=== PATIENT | female | born 1955 | race Caucasian/White ===

== ENCOUNTER 2017-05-08 07:35 | Emergency (ER) | payer BC ==
[2017-05-08] MEDS: fentaNYL 100 MCG/2 ML SDV IVPUSH ONE (08:33)
--- NOTE | 2017-05-08 09:10 | EDM.PDOC ---
ED HPI GENERAL MEDICAL PROBLEM - General Chief Complaint: Lower Extremity Injury/Pain Stated Complaint: hip pain s/p fall Time Seen by Provider: 05/08/17 08:35 Source of Information: Reports: Patient History Limitations: Reports: No Limitations - History of Present Illness INITIAL COMMENTS - FREE TEXT/NARRATIVE: Patient presents to ER with complaints of right hip pain. Was getting up for the day when tripped over a rug, hit a table and fell on her right hip. Was unable to get up from the floor and called EMS. Did not hit her head or lose consciousness. Onset: Today, Sudden Duration: Hour(s): Location: Reports: Lower Extremity, Right Quality: Reports: Sharp, Throbbing Severity: Severe Associated Symptoms: Reports: No Other Symptoms Right Hip Pain Score (Numeric/FACES): 10 - Related Data Allergies Allergy/AdvReac Type Severity Reaction Status Date / Time venom-honey bee Allergy Anaphylactic Verified 10/08/14 18:51 [bee venom (honey bee)] Shock Home Meds: Home Meds Aspirin [Halfprin] 81 mg PO DAILY 10/08/14 [History] Hydrochlorothiazide 25 mg PO DAILY 10/08/14 [History] Losartan [Cozaar] 100 mg PO DAILY 10/08/14 [History] Metoprolol Succinate [Toprol XL] 200 mg PO DAILY 10/08/14 [History] Naproxen Sodium [Aleve] 220 mg PO TID PRN 10/08/14 [History] Past Medical History HEENT History: Reports: Impaired Vision Cardiovascular History: Reports: Hypertension - Past Surgical History GI Surgical History: Reports: Appendectomy, Cholecystectomy Musculoskeletal Surgical History: Reports: Other (See Below) Other Musculoskeletal Surgeries/Procedures:: HEEL SPUR SURGERY Social & Family History - Tobacco Use Smoking Status *Q: Current Every Day Smoker Years of Tobacco use: 45 Packs/Tins Daily: 1 Used Tobacco, but Quit: No Second Hand Smoke Exposure: Yes - Caffeine Use Caffeine Use: Reports: Coffee - Recreational Drug Use Recreational Drug Use: No Review of Systems - Review of Systems Review Of Systems: See Below Constitutional: Denies: Fever, Weakness Eyes: Reports: No Symptoms Ears: Reports: No Symptoms Nose: Reports: No Symptoms Mouth/Throat: Reports: No Symptoms Respiratory: Denies: Shortness of Breath, Cough Cardiovascular: Denies: Chest Pain, Palpitations, Syncope GI/Abdominal: Denies: Abdominal Pain, Nausea Genitourinary: Reports: No Symptoms Musculoskeletal: Reports: Joint Pain Skin: Reports: No Symptoms Neurological: Reports: No Symptoms Psychiatric: Reports: No Symptoms ED EXAM, GENERAL - Physical Exam Exam: See Below Exam Limited By: No Limitations General Appearance: Alert, WD/WN, Mild Distress Ears: Normal External Exam, Normal TMs Nose: Normal Inspection, Normal Mucosa, No Blood Throat/Mouth: Normal Inspection, Normal Oropharynx Head: Normocephalic Neck: Normal Inspection, Supple, Non-Tender Respiratory/Chest: No Respiratory Distress, Lungs Clear, Normal Breath Sounds Cardiovascular: Regular Rate, Rhythm GI/Abdominal: Normal Bowel Sounds, Soft, Non-Tender Extremities: Limited Range of Motion (right hip pain, increased with movement) Neurological: Alert, Oriented Skin Exam: Warm, Dry Course - Vital Signs Last Recorded V/S: Last Vital Signs Temp 97.2 F 05/08/17 08:06 Pulse 68 05/08/17 08:06 Resp 20 05/08/17 08:06 BP 142/70 H 05/08/17 08:06 Pulse Ox 92 L 05/08/17 08:06 - Orders/Labs/Meds Orders: Active Orders 24 hr Category Date Time Status Hip Min 2V or 3V w Pelvis Rt [CR] Stat Exams 05/08/17 07:46 Taken Meds: Medications Discontinued Medications Generic Name Dose Route Start Last Admin Trade Name Bradq PRN Reason Stop Dose Admin Fentanyl 25 mcg 05/08/17 08:30 05/08/17 08:33 Sublimaze IVPUSH 05/08/17 08:31 25 mcg ONETIME ONE Administration - Re-Assessments/Exams Free Text/Narrative Re-Assessment/Exam: 05/08/17 09:18 Xrays reviewed. Right hip fracture noted. Contacted [facility]. 05/08/17 09:[address] Rivera at [facility]. Accepted patient in transfer. risks and benefits of transfer discussed with patient and . Risks of transfer include ambulance crash, uncontrolled pain and worsening status. Benefits of transfer include orthopaedic care. Risks of nontransfer include inability to care for fracture, improper healing and immobility. Benefits of nontransfer include close to home care. Patient and agree to transfer. Departure - Departure Time of Disposition: 09:34 Disposition: DC/Tfer to Acute Hospital 02 Condition: Fair Clinical Impression: Intertrochanteric fracture, hip - Discharge Information Referrals: PCP,None [Primary Care Provider] - Forms: ED Department Discharge Additional Instructions: 1. Transfer to [facility], [facility]. May give Fentanyl 25 mcg IV every hour for pain enroute - My Orders Last 24 Hours: My Active Orders 05/08/17 07:46 Hip Min 2V or 3V w Pelvis Rt [CR] Stat - Assessment/Plan Last 24 Hours: My Active Orders 05/08/17 07:46 Hip Min 2V or 3V w Pelvis Rt [CR] Stat
[2017-05-08 09:37] VITALS: BP 162/80
[2017-05-08] MEDS: fentaNYL 100 MCG/2 ML SDV IVPUSH PRN (09:42)
== END 2017-05-08 10:25 ==
LOC: CC.ED 07:35
DX: S72.141A Displaced intertrochanteric fracture of right femur, initial encounter for closed fracture (principal); Z91.030 Bee allergy status; Z79.82 Long term (current) use of aspirin; Z79.899 Other long term (current) drug therapy; I10 Essential (primary) hypertension; F17.210 Nicotine dependence, cigarettes, uncomplicated; W18.09XA Striking against other object with subsequent fall, initial encounter
CPT/HCPCS: 51702; 73502; 96374; 96376; 99285; J3010

== ENCOUNTER 2020-05-26 11:58 | Inpatient (IN) | payer MEDICARE, BC ==
--- NOTE | 2020-05-26 12:28 | EDM.PDOC ---
ED HPI GENERAL MEDICAL PROBLEM - General Chief Complaint: General Stated Complaint: n/v/d Time Seen by Provider: 05/26/20 12:10 Source of Information: Reports: Patient, EMS History Limitations: Reports: No Limitations - History of Present Illness INITIAL COMMENTS - FREE TEXT/NARRATIVE: This patient is a 65 year old female that presents to the ER. Patient arrives via EMS. Patient is a cancer patient with ovarian cancer with history of spread to liver and bladder per patient. The patient has been getting chemo treatments every 3 weeks. She reports he last chemo treatment was . She reports that this was her th chemo treatment. Patient reports that she does not have a port for access. Patient reports that her chemo and her doctors are in [place]. Patient reports since starting chemo, the last 3 treatments she has gotten diarrhea, nausea, vomiting, and generally weak. Patient reports that this has been ongoing. She reports that she had her last chemo done on , then shortly afterwards she started having more diarrhea, nausea, vomiting, and general weakness. She reports she went to the ER in [place] the . She reports she was discharged home. She reports then yesterday she went to the hospital again. I called and spoke to RN at [place] about the patient. , C-Diff order placed for patient, but was not collected. Yesterday, UA was ordered as out patient order and not resulted yet. She will fax lab results from the ER visit on the . The patient reports that she called an ambulance today because she felt more generally weak, had nausea, vomiting, and her diarrhea has continued. Patient reports being on abx within the last 30 days for cancer. Upon review, it appears was for cellulitis. The patient also reports having surgery over a year ago on her abd for her cancer. There continues to be some small open wound at the site. The patient also reports she has continued to have a dry cough for several months. Onset Date: 05/26/20 Duration: Getting Worse, Other (Patient reports been going on for several months, just worse today. ) Severity: Moderate Improves with: Reports: None Worsens with: Reports: Other (after chemo) Associated Symptoms: Reports: Cough, Loss of Appetite, Malaise, Nausea/Vomiting, Weakness. Denies: Confusion, Chest Pain, cough w sputum, Diaphoresis, Fever/Chills, Headaches, Rash, Seizure, Shortness of Breath, Syncope - Related Data Allergies Allergy/AdvReac Type Severity Reaction Status Date / Time venom-honey bee Allergy Anaphylactic Verified 05/26/20 13:15 [bee venom (honey bee)] Shock Home Meds: Home Meds Amoxicillin/Potassium Clav [Amox-Clav 875-125 mg Tablet] 1 tab PO BID 05/26/20 [History] Aspirin [Aspirin EC] 81 mg PO DAILY 05/26/20 [History] Calcium Carbonate/Vitamin D3 [Calcium 1,000 + D3 Caplet] 1 each PO DAILY 05/26/20 [History] Cholecalciferol (Vitamin D3) [Vitamin D3] 1,000 unit PO DAILY 05/26/20 [History] Escitalopram [Lexapro] 20 mg PO DAILY 05/26/20 [History] Ferrous Sulfate [Iron] 325 mg PO Q48H 05/26/20 [History] Lenvatinib Mesylate [Lenvima] 14 mg PO DAILY 05/26/20 [History] Losartan [Cozaar] 100 mg PO DAILY 05/26/20 [History] Megestrol Acetate 400 mg PO DAILY 05/26/20 [History] Metoprolol Succinate [Toprol Xl] 100 mg PO DAILY 05/26/20 [History] Mupirocin Cream [Bactroban Crm] 15 gm TOP BID PRN 05/26/20 [History] Naproxen Sodium 220 mg PO BID PRN 05/26/20 [History] cloNIDine [Catapres] 0.1 mg PO BID 05/26/20 [History] hydroCHLOROthiazide [Hydrochlorothiazide] 25 mg PO DAILY 05/26/20 [History] traMADol [Ultram] 50 mg PO Q6H PRN 05/26/20 [History] Past Medical History HEENT History: Reports: Impaired Vision Cardiovascular History: Reports: Hypertension Oncologic (Cancer) History: Reports: Ovarian - Past Surgical History GI Surgical History: Reports: Appendectomy, Cholecystectomy Musculoskeletal Surgical History: Reports: Other (See Below) Other Musculoskeletal Surgeries/Procedures:: HEEL SPUR SURGERY Social & Family History - Family History Family Medical History: No Pertinent Family History - Caffeine Use Caffeine Use: Reports: Coffee ED ROS GENERAL - Review of Systems Review Of Systems: See Below Constitutional: Reports: Malaise, Weakness, Fatigue, Decreased Appetite HEENT: Reports: No Symptoms. Denies: Rhinitis, Sinus Problem, Throat Pain, Throat Swelling Respiratory: Reports: Cough. Denies: Shortness of Breath, Wheezing, Pleuritic Chest Pain, Sputum, Hemoptysis Cardiovascular: Reports: No Symptoms. Denies: Chest Pain, Dyspnea on Exertion, Edema, Lightheadedness, Orthopnea, Palpitations, Syncope Endocrine: Reports: Fatigue GI/Abdominal: Reports: Diarrhea (x7 today per patient), Nausea, Vomiting (x2 today). Denies: Abdominal Pain : Reports: No Symptoms Musculoskeletal: Reports: No Symptoms Skin: Reports: Wound (abd, old surgical) Neurological: Reports: No Symptoms Psychiatric: Reports: No Symptoms Hematologic/Lymphatic: Reports: No Symptoms Immunologic: Reports: No Symptoms ED EXAM, GENERAL - Physical Exam Exam: See Below Exam Limited By: No Limitations General Appearance: Alert, WD/WN, No Apparent Distress, Other (Not lethargic, but generally weak and soft spoken) Eye Exam: Bilateral Eye: Normal Inspection, PERRL Ears: Normal External Exam, Normal Canal, Hearing Grossly Normal, Normal TMs Ear Exam: Bilateral Ear: Auricle Normal, Canal Normal, TM normal Nose: Normal Inspection, Normal Mucosa, No Blood Throat/Mouth: Normal Inspection, Normal Lips, Normal Teeth, Normal Gums, Normal Oropharynx, Normal Voice, No Airway Compromise Head: Atraumatic, Normocephalic Neck: Normal Inspection, Supple, Non-Tender, Full Range of Motion Respiratory/Chest: No Respiratory Distress, Lungs Clear, Normal Breath Sounds, No Accessory Muscle Use, Chest Non-Tender Cardiovascular: Normal Peripheral Pulses, Regular Rate, Rhythm, No Edema, No Gallop, No JVD, No Murmur, No Rub Peripheral Pulses: 1+: Radial (L), Radial (R), Posterior Tibial (L), Posterior Tibial (R) GI/Abdominal: Normal Bowel Sounds, Soft, Non-Tender, No Organomegaly, No Distention, No Abnormal Bruit, No Mass, Pelvis Stable, Other (wound central abd at umbilicus. open superficial wound. no drainage. no redness, no heat. ). No: Tender (Female) Exam: Deferred Rectal (Female) Exam: Deferred Back Exam: Normal Inspection, Full Range of Motion Extremities: Normal Inspection, Normal Range of Motion, Non-Tender, No Pedal Edema, Normal Capillary Refill Neurological: Alert, Oriented, Normal Cognition, No Motor/Sensory Deficits Psychiatric: Normal Affect, Normal Mood Skin Exam: Warm, Dry, Normal Color, No Rash, Wound/Incision (wound central abd at umbilicus. open superficial wound. no drainage. no redness, no heat. ), Other (Buttock Large stage 1 pressure ulcer with errythema with minimal to no blanching. Patient was incontinent of feces, cleaned by RN Suzanna. ) Lymphatic: No Adenopathy Course - Vital Signs Last Recorded V/S: Last Vital Signs Temp 97.4 F 05/26/20 12:31 Pulse 71 05/26/20 12:31 Resp 18 05/26/20 12:31 BP 115/67 05/26/20 12:31 Pulse Ox 97 05/26/20 12:31 - Orders/Labs/Meds Orders: Active Orders 24 hr Category Date Time Status Patient Status Manage Transfer [TRANSFER] Routine ADT 05/26/20 13:42 Active Chest 1V Frontal [CR] Stat Exams 05/26/20 12:24 Taken C DIFFICILE TOXIN IMMUNOASSAY [MREF] Stat Lab 05/26/20 13:00 Received CULTURE BLOOD [BC] Stat Lab 05/26/20 13:00 Results CULTURE URINE [RM] Stat Lab 05/26/20 13:00 Received CULTURE WOUND [RM] Stat Lab 05/26/20 13:00 Received Sodium Chloride 0.9% [Normal Saline] 1,000 ml Med 05/26/20 13:19 Active IV .BOLUS Blood Culture x2 Reflex Set [OM.PC] Stat Oth 05/26/20 12:24 Ordered Resuscitation Status Routine Resus Stat 05/26/20 13:43 Ordered Medication Orders Sodium Chloride (Normal Saline) 1,000 mls @ 1,000 mls/hr IV .BOLUS ONE Stop: 05/26/20 14:18 Labs: Laboratory Tests 05/26/20 05/26/20 05/26/20 Range/Units 12:42 12:42 13:00 WBC (5.0-10.0) 10^3/uL RBC (4.00-5.50) 10^6/uL Hgb (12.0-16.0) g/dL Hct (37.0-47.0) % MCV (82.0-94.0) fL MCH (27.0-32.0) pg MCHC (33.0-38.0) g/dL RDW Coeff of Mao (11.0-15.0) % Plt Count (150-400) 10^3/uL Neut % (Auto) (35-85) % Lymph % (Auto) (10-55) % [place] % (Auto) (0-16) % Eos % (Auto) (0-5) % Baso % (Auto) (0-3) % Neut # (Auto) (1.80-7.00) 10^3/uL Lymph # (Auto) (1.00-4.80) 10^3/uL [place] # (Auto) (0.00-0.80) 10^3/uL Eos # (Auto) (0.00-0.45) 10^3/uL Baso # (Auto) 10^3/uL Sodium 139 (136-145) mEq/L Potassium 4.2 (3.5-5.0) mEq/L Chloride 102 (98-106) mEq/L Carbon Dioxide 15 L D (21-32) mmol/L BUN 73 H* D (7-18) mg/dL Creatinine 3.8 H* D (0.6-1.0) mg/dL Est Cr Clr Drug Dosing 15.01 mL/min Estimated GFR (MDRD) 12 L (>=60) mL/min Glucose 103 H (75-99) mg/dL Lactic Acid (0.4-2.0) mmol/L Calcium 10.6 H (8.4-10.1) mg/dL Total Bilirubin 1.3 H (0.0-1.0) mg/dL AST 36 (15-37) U/L ALT 14 (12-78) U/L Alkaline Phosphatase 94 (46-116) U/L Creatine Kinase 46 (21-215) U/L C-Reactive Protein 0.9 H (0.2-0.8) mg/dL Total Protein 7.5 (6.4-8.2) g/dL Albumin 3.6 (3.4-5.0) g/dL Amylase 36 (25-115) U/L Lipase 67 L (73-393) U/L Urine Color Yellow (YELLOW) Urine Appearance Clear (CLEAR) Urine pH 5.0 (4.5-8.0) Ur Specific Crawford 1.025 H (1.003-1.020) Urine Protein 30 H (NEGATIVE) mg/dL Urine Glucose (UA) Negative (NEGATIVE) mg/dL Urine Ketones Trace H (NEGATIVE) mg/dL Urine Occult Blood Trace-intact H (NEGATIVE) Urine Nitrite Positive H (NEGATIVE) Urine Bilirubin Small H (NEGATIVE) Urine Urobilinogen 0.2 (0.2-1.0) EU/dL Ur Leukocyte Esterase Negative (NEGATIVE) Urine RBC 0-5 (0-5) /HPF Urine WBC Not seen (0-5) /HPF Ur Epithelial Cells Few H (NOT SEEN) /HPF Amorphous Sediment Moderate H (NOT SEEN) /HPF Urine Bacteria Few H (NOT SEEN) /HPF SARS CoV-2 RNA Rapid MONICA Negative (NEGATIVE) 05/26/20 05/26/20 Range/Units 13:00 13:00 WBC 6.3 (5.0-10.0) 10^3/uL RBC 6.29 H (4.00-5.50) 10^6/uL Hgb 17.7 H (12.0-16.0) g/dL Hct 50.4 H (37.0-47.0) % MCV 80.1 L (82.0-94.0) fL MCH 28.1 (27.0-32.0) pg MCHC 35.1 (33.0-38.0) g/dL RDW Coeff of Mao 19.6 H (11.0-15.0) % Plt Count 229 (150-400) 10^3/uL Neut % (Auto) 71.1 (35-85) % Lymph % (Auto) 14.1 (10-55) % [place] % (Auto) 12.2 (0-16) % Eos % (Auto) 2.4 (0-5) % Baso % (Auto) 0.2 (0-3) % Neut # (Auto) 4.48 (1.80-7.00) 10^3/uL Lymph # (Auto) 0.89 L (1.00-4.80) 10^3/uL [place] # (Auto) 0.77 (0.00-0.80) 10^3/uL Eos # (Auto) 0.15 (0.00-0.45) 10^3/uL Baso # (Auto) 0.01 10^3/uL Sodium (136-145) mEq/L Potassium (3.5-5.0) mEq/L Chloride (98-106) mEq/L Carbon Dioxide (21-32) mmol/L BUN (7-18) mg/dL Creatinine (0.6-1.0) mg/dL Est Cr Clr Drug Dosing mL/min Estimated GFR (MDRD) (>=60) mL/min Glucose (75-99) mg/dL Lactic Acid 1.8 (0.4-2.0) mmol/L Calcium (8.4-10.1) mg/dL Total Bilirubin (0.0-1.0) mg/dL AST (15-37) U/L ALT (12-78) U/L Alkaline Phosphatase (46-116) U/L Creatine Kinase (21-215) U/L C-Reactive Protein (0.2-0.8) mg/dL Total Protein (6.4-8.2) g/dL Albumin (3.4-5.0) g/dL Amylase (25-115) U/L Lipase (73-393) U/L Urine Color (YELLOW) Urine Appearance (CLEAR) Urine pH (4.5-8.0) Ur Specific Crawford (1.003-1.020) Urine Protein (NEGATIVE) mg/dL Urine Glucose (UA) (NEGATIVE) mg/dL Urine Ketones (NEGATIVE) mg/dL Urine Occult Blood (NEGATIVE) Urine Nitrite (NEGATIVE) Urine Bilirubin (NEGATIVE) Urine Urobilinogen (0.2-1.0) EU/dL Ur Leukocyte Esterase (NEGATIVE) Urine RBC (0-5) /HPF Urine WBC (0-5) /HPF Ur Epithelial Cells (NOT SEEN) /HPF Amorphous Sediment (NOT SEEN) /HPF Urine Bacteria (NOT SEEN) /HPF SARS CoV-2 RNA Rapid MONICA (NEGATIVE) Meds: Medications Generic Name Dose Route Start Last Admin Trade Name Freq PRN Reason Stop Dose Admin Sodium Chloride 1,000 mls @ 1,000 mls/hr 05/26/20 13:19 Normal Saline IV 05/26/20 14:18 .BOLUS ONE Discontinued Medications Generic Name Dose Route Start Last Admin Trade Name Freq PRN Reason Stop Dose Admin Ceftriaxone Sodium 1 gm 05/26/20 13:22 Ceftriaxone 1 Gm Vial IVPUSH 05/26/20 13:23 ONETIME ONE - Re-Assessments/Exams Free Text/Narrative Re-Assessment/Exam: 05/26/20 13:20 The patient CR is 3.8. I have contacted [place] to obtain ER visit and previous labs for comparison. Due to patient having a CR of 3.8, recent diarrhea and vomiting, I have ordered a NS bolus 1L. Will await [place] records. 05/26/20 13:35 I have obtained patient labs from [place] from May 23. Her BUN was 42 and her CR was 1.61 then. Negative UTI on the . Today, her BUN is 73, CR 3.8 and Nitrate positive UTI. I will admit this patient for dehydration and UTI. Also the has now arrived. He has asked about speaking with someone about assisted living or custodial placement. He reports that she can no longer take care of herself at home and that he is unable to take care of her. He reports "its just to much for me to handle." I will discuss this with social services aide when they are here tomorrow. Departure - Departure Time of Disposition: 13:40 Disposition: Admitted As Inpatient 64 Condition: Poor Clinical Impression: UTI, Urinary tract infectious disease, Renal insufficiency, General weakness Pressure ulcer Qualifiers: Pressure injury location: buttock Pressure injury stage: stage 1 Laterality: unspecified laterality Qualified Code(s): L89.301 - Pressure ulcer of unspecified buttock, stage 1 - Discharge Information *PRESCRIPTION DRUG MONITORING PROGRAM REVIEWED*: Not Applicable *COPY OF PRESCRIPTION DRUG MONITORING REPORT IN PATIENT SUSANA: Not Applicable Referrals: Jerrell Pretty MD [Primary Care Provider] - Forms: ED Department Discharge Sepsis Event Note (ED) - Focused Exam Vital Signs: Vital Signs Temp Pulse Resp BP Pulse Ox 05/26/20 12:31 97.4 F 71 18 115/67 97 - My Orders Last 24 Hours: My Active Orders 05/26/20 12:24 Chest 1V Frontal [CR] Stat Blood Culture x2 Reflex Set [OM.PC] Stat 05/26/20 13:00 C DIFFICILE TOXIN IMMUNOASSAY [MREF] Stat CULTURE BLOOD [BC] Stat CULTURE URINE [RM] Stat CULTURE WOUND [RM] Stat 05/26/20 13:19 Sodium Chloride 0.9% [Normal Saline] 1,000 ml IV .BOLUS 05/26/20 13:42 Patient Status Manage Transfer [TRANSFER] Routine 05/26/20 13:43 Resuscitation Status Routine - Assessment/Plan Admission H&P: Please use this note as an admission H&P Last 24 Hours: My Active Orders 05/26/20 12:24 Chest 1V Frontal [CR] Stat Blood Culture x2 Reflex Set [OM.PC] Stat 05/26/20 13:00 C DIFFICILE TOXIN IMMUNOASSAY [MREF] Stat CULTURE BLOOD [BC] Stat CULTURE URINE [RM] Stat CULTURE WOUND [RM] Stat 05/26/20 13:19 Sodium Chloride 0.9% [Normal Saline] 1,000 ml IV .BOLUS 05/26/20 13:42 Patient Status Manage Transfer [TRANSFER] Routine 05/26/20 13:43 Resuscitation Status Routine Plan: PLEASE SEE RN NOTE FOR PFSH
[2020-05-26] MEDS ORDERED: Sodium Chloride 0.9% 1,000 ML IV ONE (13:19)
[2020-05-26] MEDS ORDERED: cefTRIAXone 1 GM Vial IVPUSH ONE (13:22)
[2020-05-26] MEDS ORDERED: traMADol 50 MG Tab PO PRN (14:30)
[2020-05-26] MEDS ORDERED: Acetaminophen/HYDROcodone 325-5 MG Tab PO PRN (14:30)
[2020-05-26] MEDS ORDERED: Sodium Chloride 0.9% 1,000 ML IV SCH ×2 (14:30→22:00)
[2020-05-26] MEDS ORDERED: Acetaminophen 325 MG Tab PO PRN (14:30)
[2020-05-26] MEDS ORDERED: Morphine 2 MG/ML SYRINGE IVPUSH PRN (14:30)
[2020-05-26] MEDS ORDERED: Mupirocin Oint 22 GM Tube TOP PRN (14:30)
[2020-05-26] MEDS ORDERED: Non-Formulary Medication 1 Each (Ferrous Sulfate [Iron] 325 MG Tablet) PO SCH (14:30)
[2020-05-26] MEDS ORDERED: Levofloxacin/Dextrose 5%-Water 500 MG in Premix Bag 1 BAG IV SCH (14:30)
[2020-05-26] MEDS ORDERED: Naproxen 500 MG Tab PO PRN (14:30)
[2020-05-26] MEDS ORDERED: Ondansetron 4 MG/2 ML SDV IV PRN (14:30)
[2020-05-26] MEDS ORDERED: Ferrous Sulfate 324 MG Tab.EC PO SCH (14:56)
[2020-05-26] MEDS: Nicotine 21 MG/24 Hr Patch TRDERM SCH (18:07)
[2020-05-26] MEDS: Enoxaparin 30 MG/0.3 ML Syringe SUBCUT SCH (18:07)
[2020-05-26] MEDS: cloNIDine 0.1 MG Tab PO SCH (19:59)
[2020-05-27] MEDS ORDERED: MEGESTROL ACETATE 400 MG/10 ML PO SCH (08:00)
[2020-05-27] MEDS: cloNIDine 0.1 MG Tab PO SCH ×2 (08:10→19:35)
[2020-05-27] MEDS: Citalopram 10 MG Tab PO SCH (08:10)
[2020-05-27] MEDS: Ferrous Sulfate 324 MG Tab.EC PO SCH (08:11)
[2020-05-27] MEDS: Losartan 100 MG Tab PO SCH (08:11)
[2020-05-27] MEDS: Aspirin 81 MG Tab.EC PO SCH (08:11)
[2020-05-27] MEDS: Metoprolol Succinate 100 MG Tab.ER PO SCH (08:11)
[2020-05-27] MEDS: Calcium Carbonate/Vitamin D3 1250 MG-200 Unit Tab PO SCH (08:12)
[2020-05-27] MEDS: Hydrochlorothiazide 25 MG Tab PO SCH (08:12)
[2020-05-27] MEDS: Cholecalciferol (Vitamin D3) 25 MCG Tab PO SCH (08:12)
[2020-05-27] MEDS: Nicotine 21 MG/24 Hr Patch TRDERM SCH (08:13)
[2020-05-27] MEDS ORDERED: Potassium Chloride 20 MEQ in Premix Bag 1 BAG IV ONE (11:30)
[2020-05-27] MEDS: LENVATINIB MESYLATE PO SCH (11:48)
[2020-05-27] MEDS: Sodium Chloride 0.9% 1,000 ML IV SCH ×2 (12:28→19:36)
[2020-05-27] MEDS: Enoxaparin 30 MG/0.3 ML Syringe SUBCUT SCH (14:13)
[2020-05-27] MEDS ORDERED: Levofloxacin/Dextrose 5%-Water 50 ML IV SCH (15:00)
--- NOTE | 2020-05-27 22:14 | PCM.PN ---
- General Info Date of Service: 05/27/20 Admission Dx/Problem (Free Text): UTI Acute Renal Injury Subjective Update: Kiarra is a 65 yo female who presented to the ED 05/26/2020 and was admitted to the hospital. Patient has been undergoing chemotherapy every 3 weeks and was suppose to have chemotherapy last week . Due to generalized weakness with associated diarrhea, N/V and diarrhea she was unable to get her last dose. She had been seen at the [place] ED on the and underwent laboratory work. States she was discharged home. She was seen again in the hospital on the 25 of May. Admitted to worsening weakness with ongoing N/V and diarrhea. Patient has been on abx secondary to cellulitis this last month. Patient had underwent an abdominal surgery quite some time ago, secondary to her cancer, and has chronically had an open wound to her abdomen. Patient was admitted with UTI and acute renal injury. 05/27/2020 Patient had incontinence with diarrhea upon my arrival. She states she has been dealing with the diarrhea for a long time now. Admits today she is feeling a little better than yesterday. States she has no new complaints. Has been eating food. States she does have a chronic cough, secondary to smoking, which she continues to be a current smoker. Denies any need for a nicotine patch. Functional Status: Reports: Pain Controlled, Tolerating Diet, Urinating - Review of Systems General: Reports: Weakness, Fatigue, Appetite. Denies: Fever, Chills HEENT: Reports: No Symptoms Pulmonary: Reports: Cough. Denies: Shortness of Breath Cardiovascular: Reports: No Symptoms Gastrointestinal: Reports: Diarrhea. Denies: Abdominal Pain, Flatus, Nausea, Vomiting Genitourinary: Reports: No Symptoms Musculoskeletal: Reports: No Symptoms Skin: Reports: Other (pressure ulcer to buttocks, open wound to abdomen) Neurological: Reports: No Symptoms - Patient Data Vitals - Most Recent: Last Vital Signs Temp 97.1 F 05/27/20 19:34 Pulse 65 05/27/20 19:34 Resp 18 05/27/20 19:34 BP 121/82 05/27/20 19:35 Pulse Ox 96 05/27/20 19:34 Weight - Most Recent: 186 lb 12.8 oz I&O - Last 24 Hours: Intake & Output 05/27/20 05/27/20 05/27/20 06:59 14:59 22:59 Intake Total 200 1230 Output Total 300 300 Balance -100 930 Lab Results Last 24 Hours: Laboratory Results - last 24 hr 05/27/20 05/27/20 Range/Units 05:00 07:50 WBC 4.7 L (5.0-10.0) 10^3/uL RBC 5.27 (4.00-5.50) 10^6/uL Hgb 14.9 (12.0-16.0) g/dL Hct 42.6 (37.0-47.0) % MCV 80.8 L (82.0-94.0) fL MCH 28.3 (27.0-32.0) pg MCHC 35.0 (33.0-38.0) g/dL RDW Coeff of Mao 18.0 H (11.0-15.0) % Plt Count 144 L (150-400) 10^3/uL Neut % (Auto) 67.2 (35-85) % Lymph % (Auto) 14.6 (10-55) % [place] % (Auto) 12.2 (0-16) % Eos % (Auto) 5.6 H (0-5) % Baso % (Auto) 0.4 (0-3) % Neut # (Auto) 3.14 (1.80-7.00) 10^3/uL Lymph # (Auto) 0.68 L (1.00-4.80) 10^3/uL [place] # (Auto) 0.57 (0.00-0.80) 10^3/uL Eos # (Auto) 0.26 (0.00-0.45) 10^3/uL Baso # (Auto) 0.02 10^3/uL Sodium 142 (136-145) mEq/L Potassium 3.4 L (3.5-5.0) mEq/L Chloride 108 H (98-106) mEq/L Carbon Dioxide 16 L (21-32) mmol/L BUN 70 H (7-18) mg/dL Creatinine 2.8 H* (0.6-1.0) mg/dL Est Cr Clr Drug Dosing 14.00 mL/min Estimated GFR (MDRD) 17 L (>=60) mL/min Glucose 69 L D (75-99) mg/dL Calcium 9.2 (8.4-10.1) mg/dL Demond Results Last 24 Hours: Microbiology 05/26/20 13:00 Aerobic Blood Culture - Preliminary Blood - Venous NO GROWTH AFTER 1 DAY Anaerobic Blood Culture - Final 05/26/20 13:00 Urine Culture - Preliminary Urine, Voided Gram Negative Rods Med Orders - Current: Current Medications Acetaminophen (Acetaminophen 325 Mg Tab) 650 mg PO Q4H PRN PRN Reason: Pain (Mild 1-3)/fever Hydrocodone Bitart/Acetaminophen (Acetaminophen/Hydrocodone 325-5 Mg Tab) 1 tab PO Q4H PRN PRN Reason: Pain (moderate 4-6) Aspirin (Aspirin 81 Mg Tab.Ec) 81 mg PO DAILY [facility] Last Admin: 05/27/20 08:11 Dose: 81 mg Documented by: Calcium Carbonate (Calcium Carbonate/Vitamin D3 1250 Mg-200 Unit Tab) 1 tab PO DAILY [facility] Last Admin: 05/27/20 08:12 Dose: 1 tab Documented by: Cholecalciferol (Cholecalciferol (Vitamin D3) 25 Mcg Tab) 25 mcg PO DAILY [facility] Last Admin: 05/27/20 08:12 Dose: 25 mcg Documented by: Citalopram Hydrobromide (Citalopram 10 Mg Tab) 40 mg PO DAILY [facility] Last Admin: 05/27/20 08:10 Dose: 40 mg Documented by: Clonidine HCl (Clonidine 0.1 Mg Tab) 0.1 mg PO BID [facility] Last Admin: 05/27/20 19:35 Dose: 0.1 mg Documented by: Enoxaparin Sodium (Enoxaparin 30 Mg/0.3 Ml Syringe) 30 mg SUBCUT Q24H [facility] Last Admin: 05/27/20 14:13 Dose: 30 mg Documented by: Ferrous Sulfate (Ferrous Sulfate 324 Mg Tab.Ec) 324 mg PO Q48H [facility] Last Admin: 05/27/20 08:11 Dose: 324 mg Documented by: Hydrochlorothiazide (Hydrochlorothiazide 25 Mg Tab) 25 mg PO DAILY [facility] Last Admin: 05/27/20 08:12 Dose: 25 mg Documented by: Levofloxacin/Dextrose (Levaquin In D5w 250 Mg/50 Ml) 50 mls @ 50 mls/hr IV Q24H [facility] Last Admin: 05/27/20 16:08 Dose: 50 mls/hr Documented by: Sodium Chloride (Normal Saline) 1,000 mls @ 75 mls/hr IV ASDIRECTED [facility] Last Admin: 05/27/20 19:36 Dose: 75 mls/hr Documented by: Losartan Potassium (Losartan 100 Mg Tab) 100 mg PO DAILY [facility] Last Admin: 05/27/20 08:11 Dose: 100 mg Documented by: Metoprolol Succinate (Metoprolol Succinate 100 Mg Tab.Er) 100 mg PO DAILY [facility] Last Admin: 05/27/20 08:11 Dose: 100 mg Documented by: Morphine Sulfate (Morphine 2 Mg/Ml Syringe) 2 mg IVPUSH Q2H PRN PRN Reason: Pain (severe 7-10) Mupirocin (Mupirocin Oint 22 Gm Tube) 0 gm TOP BID PRN PRN Reason: Rash Naproxen (Naproxen 500 Mg Tab) 250 mg PO BID PRN PRN Reason: Pain Nicotine (Nicotine 21 Mg/24 Hr Patch) 21 mg TRDERM DAILY [facility] Last Admin: 05/27/20 08:13 Dose: Not Given Documented by: Lenvatinib Mesylate [Lenvima] 10mg & 4mg Capsules *Pt Own* 0 mg PO DAILY [facility] Last Admin: 05/27/20 11:48 Dose: 14 mg Documented by: Non-Formulary Medication (Megestrol Acetate [Megestrol Acetate]) 400 mg PO DAILY [facility] Ondansetron HCl (Ondansetron 4 Mg/2 Ml Sdv) 4 mg IV Q6H PRN PRN Reason: Nausea/Vomiting Oxyquinoline Sulfate (Oxyquinoline/Emollient 0.3% Oint 1 Oz Canister) 1 oz TOP ASDIRECTED PRN PRN Reason: Rash Tramadol HCl (Tramadol 50 Mg Tab) 50 mg PO Q6H PRN PRN Reason: Pain Discontinued Medications Ceftriaxone Sodium (Ceftriaxone 1 Gm Vial) 1 gm IVPUSH ONETIME ONE Stop: 05/26/20 13:23 Last Admin: 05/26/20 14:45 Dose: Not Given Documented by: Ferrous Sulfate (Ferrous Sulfate 324 Mg Tab.Ec) 324 mg PO Q48H [facility] Last Admin: 05/26/20 16:12 Dose: Not Given Documented by: Sodium Chloride (Normal Saline) 1,000 mls @ 1,000 mls/hr IV .BOLUS ONE Stop: 05/26/20 14:18 Last Admin: 05/26/20 14:46 Dose: 1,000 mls/hr Documented by: Sodium Chloride (Normal Saline) 1,000 mls @ 125 mls/hr IV ASDIRECTED [facility] Stop: 05/26/20 22:29 Last Admin: 05/26/20 20:13 Dose: 125 mls/hr Documented by: Sodium Chloride (Normal Saline) 1,000 mls @ 100 mls/hr IV ASDIRECTED [facility] Stop: 05/27/20 07:59 Last Admin: 05/27/20 01:12 Dose: 100 mls/hr Documented by: Levofloxacin/Dextrose 500 mg/ (Premix) 100 mls @ 100 mls/hr IV Q24H [facility] Stop: 05/26/20 15:29 Last Admin: 05/26/20 15:23 Dose: 100 mls/hr Documented by: Potassium Chloride 20 meq/ (Premix) 100 mls @ 25 mls/hr IV ONETIME ONE Stop: 05/27/20 15:29 Last Admin: 05/27/20 11:36 Dose: 25 mls/hr Documented by: Non-Formulary Medication (Ferrous Sulfate [Iron]) 325 mg PO Q48H [facility] Last Admin: 05/26/20 14:46 Dose: Not Given Documented by: - Exam General: Alert, Oriented, Cooperative, No Acute Distress Neck: Supple Lungs: Clear to Auscultation, Normal Respiratory Effort Cardiovascular: Regular Rate, Regular Rhythm, Murmurs GI/Abdominal Exam: Normal Bowel Sounds, Soft, Non-Tender, No Organomegaly Extremities: Normal Inspection, Non-Tender, Pedal Edema Peripheral Pulses: 1+: Dorsalis Pedis (L), Dorsalis Pedis (R) Skin: Warm, Dry, Intact Wound/Incisions: Other (Ulcer to buttocks and open wound to abdomen) Psy/Mental Status: Alert, Normal Affect, Normal Mood - Patient Data Lab Results Last 24 hrs: Laboratory Results - last 24 hr 05/27/20 05/27/20 Range/Units 05:00 07:50 WBC 4.7 L (5.0-10.0) 10^3/uL RBC 5.27 (4.00-5.50) 10^6/uL Hgb 14.9 (12.0-16.0) g/dL Hct 42.6 (37.0-47.0) % MCV 80.8 L (82.0-94.0) fL MCH 28.3 (27.0-32.0) pg MCHC 35.0 (33.0-38.0) g/dL RDW Coeff of Mao 18.0 H (11.0-15.0) % Plt Count 144 L (150-400) 10^3/uL Neut % (Auto) 67.2 (35-85) % Lymph % (Auto) 14.6 (10-55) % [place] % (Auto) 12.2 (0-16) % Eos % (Auto) 5.6 H (0-5) % Baso % (Auto) 0.4 (0-3) % Neut # (Auto) 3.14 (1.80-7.00) 10^3/uL Lymph # (Auto) 0.68 L (1.00-4.80) 10^3/uL [place] # (Auto) 0.57 (0.00-0.80) 10^3/uL Eos # (Auto) 0.26 (0.00-0.45) 10^3/uL Baso # (Auto) 0.02 10^3/uL Sodium 142 (136-145) mEq/L Potassium 3.4 L (3.5-5.0) mEq/L Chloride 108 H (98-106) mEq/L Carbon Dioxide 16 L (21-32) mmol/L BUN 70 H (7-18) mg/dL Creatinine 2.8 H* (0.6-1.0) mg/dL Est Cr Clr Drug Dosing 14.00 mL/min Estimated GFR (MDRD) 17 L (>=60) mL/min Glucose 69 L D (75-99) mg/dL Calcium 9.2 (8.4-10.1) mg/dL Result Diagrams: 05/27/20 05:00 05/27/20 07:50 Demond Results Last 24 hrs: Microbiology 05/26/20 13:00 Aerobic Blood Culture - Preliminary Blood - Venous NO GROWTH AFTER 1 DAY Anaerobic Blood Culture - Final 05/26/20 13:00 Urine Culture - Preliminary Urine, Voided Gram Negative Rods Sepsis Event Note - Evaluation Sepsis Screening Result: No Definite Risk - Focused Exam Vital Signs: Vital Signs Temp Pulse Resp BP BP Pulse Ox 05/27/20 19:35 121/82 05/27/20 19:34 97.1 F 65 18 121/82 96 05/27/20 16:00 97.7 F 60 18 125/50 L 97 05/27/20 12:00 96.7 F L 59 L 18 101/51 L 96 - Problem List & Annotations (1) Acute renal injury SNOMED Code(s): 83800272, 62714056 Code(s): N17.9 - ACUTE KIDNEY FAILURE, UNSPECIFIED Status: Acute Current Visit: Yes (2) General weakness SNOMED Code(s): 79123996 Code(s): R53.1 - WEAKNESS Status: Acute Current Visit: Yes (3) UTI, Urinary tract infectious disease SNOMED Code(s): 74582517 Code(s): N39.0 - URINARY TRACT INFECTION, SITE NOT SPECIFIED Status: Acute Current Visit: Yes (4) Pressure ulcer SNOMED Code(s): 583133914 Code(s): L89.90 - PRESSURE ULCER OF UNSPECIFIED SITE, UNSPECIFIED STAGE Status: Acute Current Visit: Yes Qualifiers: Pressure injury location: buttock Pressure injury stage: stage 1 Laterality: unspecified laterality Qualified Code(s): L89.301 - Pressure ulcer of unspecified buttock, stage 1 - Problem List Review Problem List Initiated/Reviewed/Updated: Yes - My Orders Last 24 Hours: My Active Orders 05/27/20 11:30 Sodium Chloride 0.9% [Normal Saline] 1,000 ml IV ASDIRECTED 05/28/20 07:00 C-REACTIVE PROTEIN [CHEM] Routine MAGNESIUM [CHEM] Routine - Plan Plan:: Will continue IV antibiotics. Laboratory work does show improved creatinine to 2.8 with yesterday being 3.8. WBC is normal. Potassium slightly low today. Will slow down IV fluids to 75ml/hr with one dose of KCl 20 mEq. Will repeat labs in am.
[2020-05-28] MEDS: Citalopram 10 MG Tab PO SCH (07:33)
[2020-05-28] MEDS: Cholecalciferol (Vitamin D3) 25 MCG Tab PO SCH (07:33)
[2020-05-28] MEDS: Calcium Carbonate/Vitamin D3 1250 MG-200 Unit Tab PO SCH (07:33)
[2020-05-28] MEDS: cloNIDine 0.1 MG Tab PO SCH ×2 (07:33→20:40)
[2020-05-28] MEDS: Losartan 100 MG Tab PO SCH (07:34)
[2020-05-28] MEDS: Hydrochlorothiazide 25 MG Tab PO SCH (07:34)
[2020-05-28] MEDS: Aspirin 81 MG Tab.EC PO SCH (07:34)
[2020-05-28] MEDS: Metoprolol Succinate 100 MG Tab.ER PO SCH (07:34)
[2020-05-28] MEDS: LENVATINIB MESYLATE PO SCH (07:38)
[2020-05-28] MEDS: Nicotine 21 MG/24 Hr Patch TRDERM SCH (07:40)
[2020-05-28] MEDS: cefTRIAXone 1 GM Vial IVPUSH SCH (08:57)
[2020-05-28] MEDS: Sodium Chloride 0.9% 1,000 ML IV SCH (08:58)
[2020-05-28] MEDS ORDERED: Magnesium Sulfate/Water 2 GM/50 ML BAG IV ONE (09:30)
--- NOTE | 2020-05-28 09:49 | PCM.PN ---
- General Info Date of Service: 05/28/20 Admission Dx/Problem (Free Text): UTI Acute Renal Injury Subjective Update: Kiarra is a 65 yo female who presented to the ED 05/26/2020 and was admitted to the hospital. Patient has been undergoing chemotherapy every 3 weeks and was suppose to have chemotherapy last week . Due to generalized weakness with associated diarrhea, N/V and diarrhea she was unable to get her last dose. She had been seen at the [place] [facility] on the and underwent laboratory work. States she was discharged home. She was seen again in the hospital on the 25 of May. Admitted to worsening weakness with ongoing N/V and diarrhea. Patient has been on abx secondary to cellulitis this last month. Patient had underwent an abdominal surgery quite some time ago, secondary to her cancer, and has chronically had an open wound to her abdomen. Patient was admitted with UTI and acute renal injury. 05/27/2020 Patient had incontinence with diarrhea upon my arrival. She states she has been dealing with the diarrhea for a long time now. Admits today she is feeling a little better than yesterday. States she has no new complaints. Has been eating food. States she does have a chronic cough, secondary to smoking, which she continues to be a current smoker. Denies any need for a nicotine patch. 05/28/2020 Patient continues to have frequent diarrhea. Symptoms have been ongoing for the last month. C-diff was negative. She states she continues to feel weak but is gradually getting better. Spoke with Celia yesterday and would like to get back home and continue chemotherapy when she is ready. No fevers or setbacks thru the night. She has been on a clear liquid diet and would like to try eating something. Functional Status: Reports: Pain Controlled, Urinating. Denies: New Symptoms - Review of Systems General: Reports: Weakness, Fatigue, Appetite. Denies: Fever HEENT: Reports: No Symptoms Pulmonary: Reports: No Symptoms Cardiovascular: Reports: No Symptoms Gastrointestinal: Reports: Diarrhea. Denies: Decreased Appetite, Nausea, Vomiting Genitourinary: Reports: No Symptoms Musculoskeletal: Reports: No Symptoms Neurological: Reports: No Symptoms - Patient Data Vitals - Most Recent: Last Vital Signs Temp 97.1 F 05/28/20 08:00 Pulse 58 L 05/28/20 08:00 Resp 18 05/28/20 08:00 BP 141/66 H 05/28/20 08:00 Pulse Ox 95 05/28/20 08:00 Weight - Most Recent: 186 lb 12.8 oz I&O - Last 24 Hours: Intake & Output 05/27/20 05/28/20 05/28/20 22:59 06:59 14:59 Intake Total 1230 1000 Output Total 300 600 Balance 930 -600 1000 Lab Results Last 24 Hours: Laboratory Results - last 24 hr 05/28/20 05/28/20 Range/Units 05:00 07:55 WBC 3.4 L (5.0-10.0) 10^3/uL RBC 5.35 (4.00-5.50) 10^6/uL Hgb 15.2 (12.0-16.0) g/dL Hct 43.7 (37.0-47.0) % MCV 81.7 L (82.0-94.0) fL MCH 28.4 (27.0-32.0) pg MCHC 34.8 (33.0-38.0) g/dL RDW Coeff of Mao 18.2 H (11.0-15.0) % Plt Count 117 L (150-400) 10^3/uL Neut % (Auto) 63.5 (35-85) % Lymph % (Auto) 18.7 (10-55) % [place] % (Auto) 12.5 (0-16) % Eos % (Auto) 5.0 (0-5) % Baso % (Auto) 0.3 (0-3) % Neut # (Auto) 2.14 (1.80-7.00) 10^3/uL Lymph # (Auto) 0.63 L (1.00-4.80) 10^3/uL [place] # (Auto) 0.42 (0.00-0.80) 10^3/uL Eos # (Auto) 0.17 (0.00-0.45) 10^3/uL Baso # (Auto) 0.01 10^3/uL Sodium 141 (136-145) mEq/L Potassium 3.8 (3.5-5.0) mEq/L Chloride 109 H (98-106) mEq/L Carbon Dioxide 17 L (21-32) mmol/L BUN 46 H (7-18) mg/dL Creatinine 1.6 H (0.6-1.0) mg/dL Est Cr Clr Drug Dosing 24.51 mL/min Estimated GFR (MDRD) 32 L (>=60) mL/min Glucose 71 L (75-99) mg/dL Calcium 9.2 (8.4-10.1) mg/dL Magnesium 1.5 L (1.8-2.4) mg/dL C-Reactive Protein 1.1 H (0.2-0.8) mg/dL Demond Results Last 24 Hours: Microbiology 05/26/20 13:00 Urine Culture - Final Urine, Voided Serrjulio Collinsa 05/26/20 13:00 Aerobic Blood Culture - Preliminary Blood - Venous NO GROWTH AFTER 1 DAY Anaerobic Blood Culture - Final Med Orders - Current: Current Medications Acetaminophen (Acetaminophen 325 Mg Tab) 650 mg PO Q4H PRN PRN Reason: Pain (Mild 1-3)/fever Hydrocodone Bitart/Acetaminophen (Acetaminophen/Hydrocodone 325-5 Mg Tab) 1 tab PO Q4H PRN PRN Reason: Pain (moderate 4-6) Aspirin (Aspirin 81 Mg Tab.Ec) 81 mg PO DAILY [facility] Last Admin: 05/28/20 07:34 Dose: 81 mg Documented by: Ceftriaxone Sodium (Ceftriaxone 1 Gm Vial) 1 gm IVPUSH DAILY [facility] Last Admin: 05/28/20 08:57 Dose: 1 gm Documented by: Citalopram Hydrobromide (Citalopram 10 Mg Tab) 40 mg PO DAILY [facility] Last Admin: 05/28/20 07:33 Dose: 40 mg Documented by: Clonidine HCl (Clonidine 0.1 Mg Tab) 0.1 mg PO BID [facility] Last Admin: 05/28/20 07:33 Dose: 0.1 mg Documented by: Enoxaparin Sodium (Enoxaparin 30 Mg/0.3 Ml Syringe) 30 mg SUBCUT Q24H [facility] Last Admin: 05/27/20 14:13 Dose: 30 mg Documented by: Ferrous Sulfate (Ferrous Sulfate 324 Mg Tab.Ec) 324 mg PO Q48H [facility] Last Admin: 05/27/20 08:11 Dose: 324 mg Documented by: Hydrochlorothiazide (Hydrochlorothiazide 25 Mg Tab) 25 mg PO DAILY [facility] Last Admin: 05/28/20 07:34 Dose: 25 mg Documented by: Sodium Chloride (Normal Saline) 1,000 mls @ 75 mls/hr IV ASDIRECTED [facility] Last Admin: 05/28/20 08:58 Dose: 75 mls/hr Documented by: Magnesium Sulfate (Magnesium Sulfate In Water 2 Gm/50 Ml) 2 gm in 50 mls @ 25 mls/hr IV ONETIME ONE Stop: 05/28/20 11:29 Losartan Potassium (Losartan 100 Mg Tab) 100 mg PO DAILY [facility] Last Admin: 05/28/20 07:34 Dose: 100 mg Documented by: Metoprolol Succinate (Metoprolol Succinate 100 Mg Tab.Er) 100 mg PO DAILY [facility] Last Admin: 05/28/20 07:34 Dose: 100 mg Documented by: Morphine Sulfate (Morphine 2 Mg/Ml Syringe) 2 mg IVPUSH Q2H PRN PRN Reason: Pain (severe 7-10) Mupirocin (Mupirocin Oint 22 Gm Tube) 0 gm TOP BID PRN PRN Reason: Rash Nicotine (Nicotine 21 Mg/24 Hr Patch) 21 mg TRDERM DAILY [facility] Last Admin: 05/28/20 07:40 Dose: 21 mg Documented by: Lenvatinib Mesylate [Lenvima] 10mg & 4mg Capsules *Pt Own* 0 mg PO DAILY [facility] Last Admin: 05/28/20 07:38 Dose: 14 mg Documented by: Non-Formulary Medication (Megestrol Acetate [Megestrol Acetate]) 400 mg PO DAILY [facility] Ondansetron HCl (Ondansetron 4 Mg/2 Ml Sdv) 4 mg IV Q6H PRN PRN Reason: Nausea/Vomiting Oxyquinoline Sulfate (Oxyquinoline/Emollient 0.3% Oint 1 Oz Canister) 1 oz TOP ASDIRECTED PRN PRN Reason: Rash Tramadol HCl (Tramadol 50 Mg Tab) 50 mg PO Q6H PRN PRN Reason: Pain Discontinued Medications Calcium Carbonate (Calcium Carbonate/Vitamin D3 1250 Mg-200 Unit Tab) 1 tab PO DAILY [facility] Last Admin: 05/28/20 07:33 Dose: 1 tab Documented by: Ceftriaxone Sodium (Ceftriaxone 1 Gm Vial) 1 gm IVPUSH ONETIME ONE Stop: 05/26/20 13:23 Last Admin: 05/26/20 14:45 Dose: Not Given Documented by: Cholecalciferol (Cholecalciferol (Vitamin D3) 25 Mcg Tab) 25 mcg PO DAILY [facility] Last Admin: 05/28/20 07:33 Dose: 25 mcg Documented by: Ferrous Sulfate (Ferrous Sulfate 324 Mg Tab.Ec) 324 mg PO Q48H [facility] Last Admin: 05/26/20 16:12 Dose: Not Given Documented by: Sodium Chloride (Normal Saline) 1,000 mls @ 1,000 mls/hr IV .BOLUS ONE Stop: 05/26/20 14:18 Last Admin: 05/26/20 14:46 Dose: 1,000 mls/hr Documented by: Sodium Chloride (Normal Saline) 1,000 mls @ 125 mls/hr IV ASDIRECTED [facility] Stop: 05/26/20 22:29 Last Admin: 05/26/20 20:13 Dose: 125 mls/hr Documented by: Sodium Chloride (Normal Saline) 1,000 mls @ 100 mls/hr IV ASDIRECTED [facility] Stop: 05/27/20 07:59 Last Admin: 05/27/20 01:12 Dose: 100 mls/hr Documented by: Levofloxacin/Dextrose 500 mg/ (Premix) 100 mls @ 100 mls/hr IV Q24H [facility] Stop: 05/26/20 15:29 Last Admin: 05/26/20 15:23 Dose: 100 mls/hr Documented by: Levofloxacin/Dextrose (Levaquin In D5w 250 Mg/50 Ml) 50 mls @ 50 mls/hr IV Q24H [facility] Last Admin: 05/27/20 16:08 Dose: 50 mls/hr Documented by: Potassium Chloride 20 meq/ (Premix) 100 mls @ 25 mls/hr IV ONETIME ONE Stop: 05/27/20 15:29 Last Admin: 05/27/20 11:36 Dose: 25 mls/hr Documented by: Naproxen (Naproxen 500 Mg Tab) 250 mg PO BID PRN PRN Reason: Pain Non-Formulary Medication (Ferrous Sulfate [Iron]) 325 mg PO Q48H [facility] Last Admin: 05/26/20 14:46 Dose: Not Given Documented by: - Exam General: Alert, Oriented, Cooperative Neck: Supple Lungs: Clear to Auscultation, Normal Respiratory Effort Cardiovascular: Regular Rate, Regular Rhythm, Murmurs GI/Abdominal Exam: Normal Bowel Sounds, Soft, Non-Tender Extremities: Normal Inspection (trace bilaterally), Pedal Edema Peripheral Pulses: 1+: Dorsalis Pedis (L), Dorsalis Pedis (R) Skin: Warm, Dry, Intact Psy/Mental Status: Alert, Normal Affect, Normal Mood - Patient Data Lab Results Last 24 hrs: Laboratory Results - last 24 hr 05/28/20 05/28/20 Range/Units 05:00 07:55 WBC 3.4 L (5.0-10.0) 10^3/uL RBC 5.35 (4.00-5.50) 10^6/uL Hgb 15.2 (12.0-16.0) g/dL Hct 43.7 (37.0-47.0) % MCV 81.7 L (82.0-94.0) fL MCH 28.4 (27.0-32.0) pg MCHC 34.8 (33.0-38.0) g/dL RDW Coeff of Mao 18.2 H (11.0-15.0) % Plt Count 117 L (150-400) 10^3/uL Neut % (Auto) 63.5 (35-85) % Lymph % (Auto) 18.7 (10-55) % [place] % (Auto) 12.5 (0-16) % Eos % (Auto) 5.0 (0-5) % Baso % (Auto) 0.3 (0-3) % Neut # (Auto) 2.14 (1.80-7.00) 10^3/uL Lymph # (Auto) 0.63 L (1.00-4.80) 10^3/uL [place] # (Auto) 0.42 (0.00-0.80) 10^3/uL Eos # (Auto) 0.17 (0.00-0.45) 10^3/uL Baso # (Auto) 0.01 10^3/uL Sodium 141 (136-145) mEq/L Potassium 3.8 (3.5-5.0) mEq/L Chloride 109 H (98-106) mEq/L Carbon Dioxide 17 L (21-32) mmol/L BUN 46 H (7-18) mg/dL Creatinine 1.6 H (0.6-1.0) mg/dL Est Cr Clr Drug Dosing 24.51 mL/min Estimated GFR (MDRD) 32 L (>=60) mL/min Glucose 71 L (75-99) mg/dL Calcium 9.2 (8.4-10.1) mg/dL Magnesium 1.5 L (1.8-2.4) mg/dL C-Reactive Protein 1.1 H (0.2-0.8) mg/dL Result Diagrams: 05/28/20 07:55 05/28/20 05:00 Demond Results Last 24 hrs: Microbiology 05/26/20 13:00 Urine Culture - Final Urine, Voided Kathi Collinsa 05/26/20 13:00 Aerobic Blood Culture - Preliminary Blood - Venous NO GROWTH AFTER 1 DAY Anaerobic Blood Culture - Final Sepsis Event Note - Evaluation Sepsis Screening Result: No Definite Risk - Focused Exam Vital Signs: Vital Signs Temp Pulse Pulse Resp BP BP BP 05/28/20 08:00 97.1 F 58 L 18 141/66 H 05/28/20 07:34 58 L 141/66 H 05/28/20 07:33 141/66 H 05/28/20 03:50 96.2 F L 58 L 18 98/41 L 05/27/20 23:32 96.3 F L 63 18 131/62 Pulse Ox 05/28/20 08:00 95 05/28/20 07:34 05/28/20 07:33 05/28/20 03:50 95 05/27/20 23:32 95 - Problem List & Annotations (1) Acute renal injury SNOMED Code(s): 70437274, 94727820 Code(s): N17.9 - ACUTE KIDNEY FAILURE, UNSPECIFIED Status: Acute Current Visit: Yes (2) General weakness SNOMED Code(s): 30634491 Code(s): R53.1 - WEAKNESS Status: Acute Current Visit: Yes (3) UTI, Urinary tract infectious disease SNOMED Code(s): 19113817 Code(s): N39.0 - URINARY TRACT INFECTION, SITE NOT SPECIFIED Status: Acute Current Visit: Yes (4) Pressure ulcer SNOMED Code(s): 204567984 Code(s): L89.90 - PRESSURE ULCER OF UNSPECIFIED SITE, UNSPECIFIED STAGE Status: Acute Current Visit: Yes Qualifiers: Pressure injury location: buttock Pressure injury stage: stage 1 Laterality: unspecified laterality Qualified Code(s): L89.301 - Pressure ulcer of unspecified buttock, stage 1 - Problem List Review Problem List Initiated/Reviewed/Updated: Yes - My Orders Last 24 Hours: My Active Orders 05/27/20 11:30 Sodium Chloride 0.9% [Normal Saline] 1,000 ml IV ASDIRECTED 05/28/20 08:03 WBC, STOOL [OP] Routine 05/28/20 08:30 [email or web address] [Rocephin] 1 gm IVPUSH DAILY 05/28/20 09:30 Magnesium Sulfate/Water [Magnesium Sulfate in Water 2 GM/50 ML] 2 gm in 50 ml IV ONETIME 05/28/20 09:38 STOOL CULTURE [MREF] Routine 05/28/20 Lunch Advance Diet Instructions [DIET] - Plan Plan:: Will continue IV antibiotics. Laboratory work does show improved creatinine to 2.8 with yesterday being 3.8. WBC is normal. Potassium slightly low today. Will slow down IV fluids to 75ml/hr with one dose of KCl 20 mEq. Will repeat labs in am. 05/28/2020 IV antibiotics switched to Rocephin with acute kidney injury. Urine culture does show sensitivity to Rocephin. Magnesium slightly low and will give IV magnesium today. Potassium has corrected. Vital signs stable. Creatinine is currently 1.6, much improved from 3.8 on admit. Will have physical therapy work on strengthening.
[2020-05-28] MEDS: Enoxaparin 30 MG/0.3 ML Syringe SUBCUT SCH (13:37)
[2020-05-28] MEDS: methylPREDNISolone Sodium Succinate 125 MG/2 ML SDV IVPUSH SCH (18:23)
[2020-05-29] MEDS: Sodium Chloride 0.9% 1,000 ML IV SCH ×3 (00:34→19:32)
[2020-05-29] MEDS: cefTRIAXone 1 GM Vial IVPUSH SCH (08:16)
[2020-05-29] MEDS: Aspirin 81 MG Tab.EC PO SCH (08:16)
[2020-05-29] MEDS: Hydrochlorothiazide 25 MG Tab PO SCH (08:16)
[2020-05-29] MEDS: Ferrous Sulfate 324 MG Tab.EC PO SCH (08:16)
[2020-05-29] MEDS: cloNIDine 0.1 MG Tab PO SCH ×2 (08:17→19:30)
[2020-05-29] MEDS: Citalopram 10 MG Tab PO SCH (08:17)
[2020-05-29] MEDS: Metoprolol Succinate 100 MG Tab.ER PO SCH (08:17)
[2020-05-29] MEDS: Nicotine 21 MG/24 Hr Patch TRDERM SCH (08:21)
[2020-05-29] MEDS: Losartan 100 MG Tab PO SCH (08:21)
[2020-05-29] MEDS ORDERED: cloNIDine 0.1 MG Tab PO ONE (11:15)
[2020-05-29] MEDS: Enoxaparin 30 MG/0.3 ML Syringe SUBCUT SCH (15:26)
[2020-05-29] MEDS: Oxyquinoline/Emollient 0.3% Oint 1 OZ Canister TOP PRN (15:27)
[2020-05-29] MEDS: methylPREDNISolone Sodium Succinate 125 MG/2 ML SDV IVPUSH SCH (17:20)
--- NOTE | 2020-05-30 00:54 | PCM.PN ---
- General Info Date of Service: 05/29/20 Admission Dx/Problem (Free Text): UTI Acute Renal Injury Subjective Update: Kiarra is a 65 yo female who presented to the ED 05/26/2020 and was admitted to the hospital. Patient has been undergoing chemotherapy every 3 weeks and was suppose to have chemotherapy last week . Due to generalized weakness with associated diarrhea, N/V and diarrhea she was unable to get her last dose. She had been seen at the [facility] on the and underwent laboratory work. States she was discharged home. She was seen again in the hospital on the 25 of May. Admitted to worsening weakness with ongoing N/V and diarrhea. Patient has been on abx secondary to cellulitis this last month. Patient had underwent an abdominal surgery quite some time ago, secondary to her cancer, and has chronically had an open wound to her abdomen. Patient was admitted with UTI and acute renal injury. 05/27/2020 Patient had incontinence with diarrhea upon my arrival. She states she has been dealing with the diarrhea for a long time now. Admits today she is feeling a little better than yesterday. States she has no new complaints. Has been eating food. States she does have a chronic cough, secondary to smoking, which she continues to be a current smoker. Denies any need for a nicotine patch. 05/28/2020 Patient continues to have frequent diarrhea. Symptoms have been ongoing for the last month. C-diff was negative. She states she continues to feel weak but is gradually getting better. Spoke with Celia yesterday and would like to get back home and continue chemotherapy when she is ready. No fevers or setbacks thru the night. She has been on a clear liquid diet and would like to try eating something. 05/29/2020 Patient's diarrhea has significantly improved. Oncologist recommended stopping the Lenvima yesterday as it has adverse effects of acute renal injury and severe diarrhea. Advised starting patient on steroids as well. She continues to have urinary catheter in place. She denies any new onset of symptoms today. Continues to be weak and has been working with physical therapy. - Review of Systems General: Reports: Weakness, Fatigue, Appetite. Denies: Fever HEENT: Reports: No Symptoms Pulmonary: Reports: Cough (chronic). Denies: Shortness of Breath, Pleuritic Chest Pain Cardiovascular: Reports: No Symptoms Gastrointestinal: Reports: Diarrhea (chronic). Denies: Abdominal Pain, Nausea, Vomiting Genitourinary: Reports: No Symptoms Musculoskeletal: Reports: No Symptoms Skin: Reports: Other (coccyx and umbilicus wounds) Neurological: Reports: No Symptoms Psychiatric: Reports: No Symptoms - Patient Data Vitals - Most Recent: Last Vital Signs Temp 97.5 F 05/30/20 00:00 Pulse 72 05/30/20 00:00 Resp 18 05/30/20 00:00 BP 157/67 H 05/30/20 00:00 Pulse Ox 96 05/30/20 00:00 Weight - Most Recent: 186 lb 12.8 oz I&O - Last 24 Hours: Intake & Output 05/29/20 05/29/20 05/30/20 14:59 22:59 06:59 Intake Total 1000 1909 Output Total 450 Balance 1000 1459 Lab Results Last 24 Hours: Laboratory Results - last 24 hr 05/29/20 05/29/20 Range/Units 08:03 08:03 WBC 3.1 L (5.0-10.0) 10^3/uL RBC 5.37 (4.00-5.50) 10^6/uL Hgb 15.0 (12.0-16.0) g/dL Hct 43.3 (37.0-47.0) % MCV 80.6 L (82.0-94.0) fL MCH 27.9 (27.0-32.0) pg MCHC 34.6 (33.0-38.0) g/dL RDW Coeff of Mao 18.7 H (11.0-15.0) % Plt Count 124 L (150-400) 10^3/uL Neut % (Auto) 78.3 (35-85) % Lymph % (Auto) 17.5 (10-55) % [place] % (Auto) 3.9 (0-16) % Eos % (Auto) 0.3 (0-5) % Baso % (Auto) 0 (0-3) % Neut # (Auto) 2.41 (1.80-7.00) 10^3/uL Lymph # (Auto) 0.54 L (1.00-4.80) 10^3/uL [place] # (Auto) 0.12 (0.00-0.80) 10^3/uL Eos # (Auto) 0.01 (0.00-0.45) 10^3/uL Baso # (Auto) 0.00 10^3/uL Sodium 141 (136-145) mEq/L Potassium 3.9 (3.5-5.0) mEq/L Chloride 110 H (98-106) mEq/L Carbon Dioxide 17 L (21-32) mmol/L BUN 30 H (7-18) mg/dL Creatinine 1.1 H (0.6-1.0) mg/dL Est Cr Clr Drug Dosing 35.65 mL/min Estimated GFR (MDRD) 50 L (>=60) mL/min Glucose 135 H D (75-99) mg/dL Calcium 9.6 (8.4-10.1) mg/dL Demond Results Last 24 Hours: Microbiology 05/28/20 09:38 Stool Aerobic Culture - Preliminary Stool / Feces 05/26/20 13:00 Aerobic Blood Culture - Preliminary Blood - Venous NO GROWTH AFTER 3 DAYS Anaerobic Blood Culture - Final Med Orders - Current: Current Medications Acetaminophen (Acetaminophen 325 Mg Tab) 650 mg PO Q4H PRN PRN Reason: Pain (Mild 1-3)/fever Hydrocodone Bitart/Acetaminophen (Acetaminophen/Hydrocodone 325-5 Mg Tab) 1 tab PO Q4H PRN PRN Reason: Pain (moderate 4-6) Aspirin (Aspirin 81 Mg Tab.Ec) 81 mg PO DAILY [facility] Last Admin: 05/29/20 08:16 Dose: 81 mg Documented by: Ceftriaxone Sodium (Ceftriaxone 1 Gm Vial) 1 gm IVPUSH DAILY [facility] Last Admin: 05/29/20 08:16 Dose: 1 gm Documented by: Citalopram Hydrobromide (Citalopram 10 Mg Tab) 40 mg PO DAILY [facility] Last Admin: 05/29/20 08:17 Dose: 40 mg Documented by: Clonidine HCl (Clonidine 0.1 Mg Tab) 0.1 mg PO BID [facility] Last Admin: 05/29/20 19:30 Dose: 0.1 mg Documented by: Enoxaparin Sodium (Enoxaparin 30 Mg/0.3 Ml Syringe) 30 mg SUBCUT Q24H [facility] Last Admin: 05/29/20 15:26 Dose: 30 mg Documented by: Ferrous Sulfate (Ferrous Sulfate 324 Mg Tab.Ec) 324 mg PO Q48H [facility] Last Admin: 05/29/20 08:16 Dose: 324 mg Documented by: Hydrochlorothiazide (Hydrochlorothiazide 25 Mg Tab) 25 mg PO DAILY [facility] Last Admin: 05/29/20 08:16 Dose: 25 mg Documented by: Losartan Potassium (Losartan 100 Mg Tab) 100 mg PO DAILY [facility] Last Admin: 05/29/20 08:21 Dose: 100 mg Documented by: Methylprednisolone Sodium Succinate (Methylprednisolone Sodium Succinate 125 Mg/2 Ml Sdv) 62.5 mg IVPUSH Q24H [facility] Last Admin: 05/29/20 17:20 Dose: 62.5 mg Documented by: Metoprolol Succinate (Metoprolol Succinate 100 Mg Tab.Er) 100 mg PO DAILY [facility] Last Admin: 05/29/20 08:17 Dose: 100 mg Documented by: Morphine Sulfate (Morphine 2 Mg/Ml Syringe) 2 mg IVPUSH Q2H PRN PRN Reason: Pain (severe 7-10) Mupirocin (Mupirocin Oint 22 Gm Tube) 0 gm TOP BID PRN PRN Reason: Rash Nicotine (Nicotine 21 Mg/24 Hr Patch) 21 mg TRDERM DAILY [facility] Last Admin: 05/29/20 08:21 Dose: 21 mg Documented by: Non-Formulary Medication (Megestrol Acetate [Megestrol Acetate]) 400 mg PO DAILY [facility] Ondansetron HCl (Ondansetron 4 Mg/2 Ml Sdv) 4 mg IV Q6H PRN PRN Reason: Nausea/Vomiting Oxyquinoline Sulfate (Oxyquinoline/Emollient 0.3% Oint 1 Oz Canister) 1 oz TOP ASDIRECTED PRN PRN Reason: Rash Last Admin: 05/29/20 15:27 Dose: 1 applic Documented by: Tramadol HCl (Tramadol 50 Mg Tab) 50 mg PO Q6H PRN PRN Reason: Pain Discontinued Medications Calcium Carbonate (Calcium Carbonate/Vitamin D3 1250 Mg-200 Unit Tab) 1 tab PO DAILY [facility] Last Admin: 05/28/20 07:33 Dose: 1 tab Documented by: Ceftriaxone Sodium (Ceftriaxone 1 Gm Vial) 1 gm IVPUSH ONETIME ONE Stop: 05/26/20 13:23 Last Admin: 05/26/20 14:45 Dose: Not Given Documented by: Cholecalciferol (Cholecalciferol (Vitamin D3) 25 Mcg Tab) 25 mcg PO DAILY [facility] Last Admin: 05/28/20 07:33 Dose: 25 mcg Documented by: Clonidine HCl (Clonidine 0.1 Mg Tab) 0.1 mg PO ONETIME ONE Stop: 05/29/20 11:16 Last Admin: 05/29/20 11:24 Dose: 0.1 mg Documented by: Ferrous Sulfate (Ferrous Sulfate 324 Mg Tab.Ec) 324 mg PO Q48H [facility] Last Admin: 05/26/20 16:12 Dose: Not Given Documented by: Sodium Chloride (Normal Saline) 1,000 mls @ 1,000 mls/hr IV .BOLUS ONE Stop: 05/26/20 14:18 Last Admin: 05/26/20 14:46 Dose: 1,000 mls/hr Documented by: Sodium Chloride (Normal Saline) 1,000 mls @ 125 mls/hr IV ASDIRECTED [facility] Stop: 05/26/20 22:29 Last Admin: 05/26/20 20:13 Dose: 125 mls/hr Documented by: Sodium Chloride (Normal Saline) 1,000 mls @ 100 mls/hr IV ASDIRECTED [facility] Stop: 05/27/20 07:59 Last Admin: 05/27/20 01:12 Dose: 100 mls/hr Documented by: Levofloxacin/Dextrose 500 mg/ (Premix) 100 mls @ 100 mls/hr IV Q24H [facility] Stop: 05/26/20 15:29 Last Admin: 05/26/20 15:23 Dose: 100 mls/hr Documented by: Levofloxacin/Dextrose (Levaquin In D5w 250 Mg/50 Ml) 50 mls @ 50 mls/hr IV Q24H [facility] Last Admin: 05/27/20 16:08 Dose: 50 mls/hr Documented by: Potassium Chloride 20 meq/ (Premix) 100 mls @ 25 mls/hr IV ONETIME ONE Stop: 05/27/20 15:29 Last Admin: 05/27/20 11:36 Dose: 25 mls/hr Documented by: Sodium Chloride (Normal Saline) 1,000 mls @ 75 mls/hr IV ASDIRECTED [facility] Stop: 05/30/20 00:43 Last Admin: 05/29/20 19:32 Dose: 75 mls/hr Documented by: Magnesium Sulfate (Magnesium Sulfate In Water 2 Gm/50 Ml) 2 gm in 50 mls @ 25 mls/hr IV ONETIME ONE Stop: 05/28/20 11:29 Last Admin: 05/28/20 10:17 Dose: 25 mls/hr Documented by: Naproxen (Naproxen 500 Mg Tab) 250 mg PO BID PRN PRN Reason: Pain Non-Formulary Medication (Ferrous Sulfate [Iron]) 325 mg PO Q48H [facility] Last Admin: 05/26/20 14:46 Dose: Not Given Documented by: Lenvatinib Mesylate [Lenvima] 10mg & 4mg Capsules *Pt Own* 0 mg PO DAILY [facility] Last Admin: 05/28/20 07:38 Dose: 14 mg Documented by: - Exam General: Alert, Oriented, Cooperative, No Acute Distress Neck: Supple Lungs: Clear to Auscultation, Normal Respiratory Effort Cardiovascular: Regular Rate, Regular Rhythm, Murmurs GI/Abdominal Exam: Normal Bowel Sounds, Soft, Non-Tender, No Organomegaly, Other (umbilical ulcer, no drainage noted, clean appearing) Extremities: Normal Inspection, Non-Tender, No Pedal Edema Peripheral Pulses: 2+: Dorsalis Pedis (L), Dorsalis Pedis (R) Skin: Warm Neurological: No New Focal Deficit Psy/Mental Status: Alert, Normal Affect, Normal Mood - Patient Data Lab Results Last 24 hrs: Laboratory Results - last 24 hr 05/29/20 05/29/20 Range/Units 08:03 08:03 WBC 3.1 L (5.0-10.0) 10^3/uL RBC 5.37 (4.00-5.50) 10^6/uL Hgb 15.0 (12.0-16.0) g/dL Hct 43.3 (37.0-47.0) % MCV 80.6 L (82.0-94.0) fL MCH 27.9 (27.0-32.0) pg MCHC 34.6 (33.0-38.0) g/dL RDW Coeff of Mao 18.7 H (11.0-15.0) % Plt Count 124 L (150-400) 10^3/uL Neut % (Auto) 78.3 (35-85) % Lymph % (Auto) 17.5 (10-55) % [place] % (Auto) 3.9 (0-16) % Eos % (Auto) 0.3 (0-5) % Baso % (Auto) 0 (0-3) % Neut # (Auto) 2.41 (1.80-7.00) 10^3/uL Lymph # (Auto) 0.54 L (1.00-4.80) 10^3/uL [place] # (Auto) 0.12 (0.00-0.80) 10^3/uL Eos # (Auto) 0.01 (0.00-0.45) 10^3/uL Baso # (Auto) 0.00 10^3/uL Sodium 141 (136-145) mEq/L Potassium 3.9 (3.5-5.0) mEq/L Chloride 110 H (98-106) mEq/L Carbon Dioxide 17 L (21-32) mmol/L BUN 30 H (7-18) mg/dL Creatinine 1.1 H (0.6-1.0) mg/dL Est Cr Clr Drug Dosing 35.65 mL/min Estimated GFR (MDRD) 50 L (>=60) mL/min Glucose 135 H D (75-99) mg/dL Calcium 9.6 (8.4-10.1) mg/dL Result Diagrams: 05/29/20 08:03 05/29/20 08:03 Demond Results Last 24 hrs: Microbiology 05/28/20 09:38 Stool Aerobic Culture - Preliminary Stool / Feces 05/26/20 13:00 Aerobic Blood Culture - Preliminary Blood - Venous NO GROWTH AFTER 3 DAYS Anaerobic Blood Culture - Final Sepsis Event Note - Evaluation Sepsis Screening Result: No Definite Risk - Focused Exam Vital Signs: Vital Signs Temp Pulse Resp BP BP Pulse Ox 05/30/20 00:00 97.5 F 72 18 157/67 H 96 05/29/20 19:33 97 F 66 18 172/80 H 96 05/29/20 19:30 172/80 H 05/29/20 16:00 97.0 F 56 L 16 153/57 H 697 H - Problem List & Annotations (1) Acute renal injury SNOMED Code(s): 92343979, 25928546 Code(s): N17.9 - ACUTE KIDNEY FAILURE, UNSPECIFIED Status: Acute Current Visit: Yes (2) General weakness SNOMED Code(s): 63330368 Code(s): R53.1 - WEAKNESS Status: Acute Current Visit: Yes (3) UTI, Urinary tract infectious disease SNOMED Code(s): 71706604 Code(s): N39.0 - URINARY TRACT INFECTION, SITE NOT SPECIFIED Status: Acute Current Visit: Yes (4) Pressure ulcer SNOMED Code(s): 774913348 Code(s): L89.90 - PRESSURE ULCER OF UNSPECIFIED SITE, UNSPECIFIED STAGE Status: Acute Current Visit: Yes Qualifiers: Pressure injury location: buttock Pressure injury stage: stage 1 Laterality: unspecified laterality Qualified Code(s): L89.301 - Pressure ulcer of unspecified buttock, stage 1 (5) Ovarian cancer SNOMED Code(s): 174650562 Code(s): C56.9 - MALIGNANT NEOPLASM OF UNSPECIFIED OVARY Status: Acute Current Visit: Yes Qualifiers: Laterality: unspecified laterality Qualified Code(s): C56.9 - Malignant neoplasm of unspecified ovary - Problem List Review Problem List Initiated/Reviewed/Updated: Yes - My Orders Last 24 Hours: My Active Orders 05/30/20 08:00 PRO B-TYPE NATRIUR PEPT,BNPPRO [CHEM] Routine - Plan Plan:: Will continue IV antibiotics. Laboratory work does show improved creatinine to 2.8 with yesterday being 3.8. WBC is normal. Potassium slightly low today. Will slow down IV fluids to 75ml/hr with one dose of KCl 20 mEq. Will repeat labs in am. 05/28/2020 IV antibiotics switched to Rocephin with acute kidney injury. Urine culture does show sensitivity to Rocephin. Magnesium slightly low and will give IV magnesium today. Potassium has corrected. Vital signs stable. Creatinine is currently 1. 6, much improved from 3.8 on admit. Will have physical therapy work on strengthening. 05/29/2020 Patient's diarrhea had improved slightly today. Will continue IV Rocephin. Blood pressure has been quite elevated today and patient was given another dose of clonidine 0.1mg. Creatinine 1.1 today, showing ongoing downward trend. Potassium normalized. WBC is slightly lower at 3,100 today. Physical therapy to continue with strengthening. Will continue to hold Lenvima. Celia Murrell has discussed alf placement with Kiarra and her , as he doesn't feel he can care for her at this time. Patient is not a candidate for alf placement secondary to chemotherapy. had requested possible repeat PET scan to see if the chemotherapy has been helping at all. Celia discussed arranging consult with oncologist. Patient to remain under acute status today with elevated blood pressure. Will reevaluate and plan for swing bed admission tomorrow for ongoing strengthening as well.
[2020-05-30] MEDS: Losartan 100 MG Tab PO SCH (07:44)
[2020-05-30] MEDS: Aspirin 81 MG Tab.EC PO SCH (07:44)
[2020-05-30] MEDS: Citalopram 10 MG Tab PO SCH (07:44)
[2020-05-30] MEDS: Metoprolol Succinate 100 MG Tab.ER PO SCH (07:45)
[2020-05-30] MEDS: cloNIDine 0.1 MG Tab PO SCH ×2 (07:46→19:27)
[2020-05-30] MEDS: Hydrochlorothiazide 25 MG Tab PO SCH (07:46)
[2020-05-30] MEDS: Nicotine 21 MG/24 Hr Patch TRDERM SCH (07:47)
[2020-05-30] MEDS ORDERED: Furosemide 40 MG/4 ML VIAL IVPUSH ONE ×2 (07:57→09:30)
--- NOTE | 2020-05-30 08:36 | PCM.PN ---
- General Info Date of Service: 05/30/20 Admission Dx/Problem (Free Text): UTI Acute Renal Injury Subjective Update: Kiarra is a 65 yo female who presented to the ED 05/26/2020 and was admitted to the hospital. Patient has been undergoing chemotherapy every 3 weeks and was suppose to have chemotherapy last week . Due to generalized weakness with associated diarrhea, N/V and diarrhea she was unable to get her last dose. She had been seen at the [place] [facility] on the and underwent laboratory work. States she was discharged home. She was seen again in the hospital on the 25 of May. Admitted to worsening weakness with ongoing N/V and diarrhea. Patient has been on abx secondary to cellulitis this last month. Patient had underwent an abdominal surgery quite some time ago, secondary to her cancer, and has chronically had an open wound to her abdomen. Patient was admitted with UTI and acute renal injury. 05/27/2020 Patient had incontinence with diarrhea upon my arrival. She states she has been dealing with the diarrhea for a long time now. Admits today she is feeling a little better than yesterday. States she has no new complaints. Has been eating food. States she does have a chronic cough, secondary to smoking, which she continues to be a current smoker. Denies any need for a nicotine patch. 05/28/2020 Patient continues to have frequent diarrhea. Symptoms have been ongoing for the last month. C-diff was negative. She states she continues to feel weak but is gradually getting better. Spoke with Celia yesterday and would like to get back home and continue chemotherapy when she is ready. No fevers or setbacks thru the night. She has been on a clear liquid diet and would like to try eating something. 05/29/2020 Patient's diarrhea has significantly improved. Oncologist recommended stopping the Lenvima yesterday as it has adverse effects of acute renal injury and severe diarrhea. Advised starting patient on steroids as well. She continues to have urinary catheter in place. She denies any new onset of symptoms today. Continues to be weak and has been working with physical therapy. 05/30/2020 Kiarra's diarrhea continues to improve and admits she hasn't had an episode all nigh. She admits she feels she is really starting to improve. Appetite is a lot better and currently enjoying her breakfast. No new onset of symptoms. Functional Status: Reports: Tolerating Diet, Ambulating. Denies: New Symptoms - Review of Systems General: Reports: Weakness HEENT: Reports: No Symptoms Pulmonary: Reports: No Symptoms Cardiovascular: Reports: No Symptoms Gastrointestinal: Reports: No Symptoms Genitourinary: Reports: No Symptoms Neurological: Reports: No Symptoms - Patient Data Vitals - Most Recent: Last Vital Signs Temp 97 F 05/30/20 04:00 Pulse 58 L 05/30/20 07:45 Resp 18 05/30/20 04:00 BP 176/78 H 05/30/20 07:46 Pulse Ox 95 05/30/20 04:00 Weight - Most Recent: 186 lb 12.8 oz I&O - Last 24 Hours: Intake & Output 05/29/20 05/30/20 05/30/20 22:59 06:59 14:59 Intake Total 1909 250 Output Total 450 650 Balance 1459 -400 Lab Results Last 24 Hours: Laboratory Results - last 24 hr 05/30/20 05/30/20 Range/Units 07:01 07:01 WBC 5.1 (5.0-10.0) 10^3/uL RBC 4.82 (4.00-5.50) 10^6/uL Hgb 13.5 (12.0-16.0) g/dL Hct 38.8 (37.0-47.0) % MCV 80.5 L (82.0-94.0) fL MCH 28.0 (27.0-32.0) pg MCHC 34.8 (33.0-38.0) g/dL RDW Coeff of Mao 17.7 H (11.0-15.0) % Plt Count 119 L (150-400) 10^3/uL Neut % (Auto) 81.2 (35-85) % Lymph % (Auto) 13.2 (10-55) % [place] % (Auto) 5.4 (0-16) % Eos % (Auto) 0.2 (0-5) % Baso % (Auto) 0 (0-3) % Neut # (Auto) 4.17 (1.80-7.00) 10^3/uL Lymph # (Auto) 0.68 L (1.00-4.80) 10^3/uL [place] # (Auto) 0.28 (0.00-0.80) 10^3/uL Eos # (Auto) 0.01 (0.00-0.45) 10^3/uL Baso # (Auto) 0.00 10^3/uL Sodium 140 (136-145) mEq/L Potassium 3.6 (3.5-5.0) mEq/L Chloride 108 H (98-106) mEq/L Carbon Dioxide 18 L (21-32) mmol/L BUN 23 H (7-18) mg/dL Creatinine 1.0 (0.6-1.0) mg/dL Est Cr Clr Drug Dosing 39.21 mL/min Estimated GFR (MDRD) 55 L (>=60) mL/min Glucose 122 H (75-99) mg/dL Calcium 9.1 (8.4-10.1) mg/dL Magnesium 1.4 L (1.8-2.4) mg/dL NT-Pro-B Natriuret Pep 6295 H (0-1000) pg/mL Demond Results Last 24 Hours: Microbiology 05/28/20 09:38 Stool Aerobic Culture - Preliminary Stool / Feces 05/26/20 13:00 Aerobic Blood Culture - Preliminary Blood - Venous NO GROWTH AFTER 3 DAYS Anaerobic Blood Culture - Final Med Orders - Current: Current Medications Acetaminophen (Acetaminophen 325 Mg Tab) 650 mg PO Q4H PRN PRN Reason: Pain (Mild 1-3)/fever Hydrocodone Bitart/Acetaminophen (Acetaminophen/Hydrocodone 325-5 Mg Tab) 1 tab PO Q4H PRN PRN Reason: Pain (moderate 4-6) Amlodipine Besylate (Amlodipine 2.5 Mg Tab) 5 mg PO DAILY [facility] Aspirin (Aspirin 81 Mg Tab.Ec) 81 mg PO DAILY [facility] Last Admin: 05/30/20 07:44 Dose: 81 mg Documented by: Ceftriaxone Sodium (Ceftriaxone 1 Gm Vial) 1 gm IVPUSH DAILY [facility] Last Admin: 05/29/20 08:16 Dose: 1 gm Documented by: Citalopram Hydrobromide (Citalopram 10 Mg Tab) 40 mg PO DAILY [facility] Last Admin: 05/30/20 07:44 Dose: 40 mg Documented by: Clonidine HCl (Clonidine 0.1 Mg Tab) 0.1 mg PO BID [facility] Last Admin: 05/30/20 07:46 Dose: 0.1 mg Documented by: Enoxaparin Sodium (Enoxaparin 30 Mg/0.3 Ml Syringe) 30 mg SUBCUT Q24H [facility] Last Admin: 05/29/20 15:26 Dose: 30 mg Documented by: Ferrous Sulfate (Ferrous Sulfate 324 Mg Tab.Ec) 324 mg PO Q48H [facility] Last Admin: 05/29/20 08:16 Dose: 324 mg Documented by: Furosemide (Furosemide 40 Mg Tab) 40 mg PO DAILY [facility] Magnesium Sulfate (Magnesium Sulfate In Water 2 Gm/50 Ml) 2 gm in 50 mls @ 50 mls/hr IV Q1H [facility] Stop: 05/30/20 09:59 Losartan Potassium (Losartan 100 Mg Tab) 100 mg PO DAILY [facility] Last Admin: 05/30/20 07:44 Dose: 100 mg Documented by: Magnesium Chloride (Magnesium Chloride 64 Mg Tab.Er) 64 mg PO BIDMEALS [facility] Methylprednisolone Sodium Succinate (Methylprednisolone Sodium Succinate 125 Mg/2 Ml Sdv) 62.5 mg IVPUSH Q24H [facility] Last Admin: 05/29/20 17:20 Dose: 62.5 mg Documented by: Metoprolol Succinate (Metoprolol Succinate 100 Mg Tab.Er) 100 mg PO DAILY [facility] Last Admin: 05/30/20 07:45 Dose: 100 mg Documented by: Morphine Sulfate (Morphine 2 Mg/Ml Syringe) 2 mg IVPUSH Q2H PRN PRN Reason: Pain (severe 7-10) Mupirocin (Mupirocin Oint 22 Gm Tube) 0 gm TOP BID PRN PRN Reason: Rash Nicotine (Nicotine 21 Mg/24 Hr Patch) 21 mg TRDERM DAILY [facility] Last Admin: 05/30/20 07:47 Dose: 21 mg Documented by: Non-Formulary Medication (Megestrol Acetate [Megestrol Acetate]) 400 mg PO DAILY [facility] Ondansetron HCl (Ondansetron 4 Mg/2 Ml Sdv) 4 mg IV Q6H PRN PRN Reason: Nausea/Vomiting Oxyquinoline Sulfate (Oxyquinoline/Emollient 0.3% Oint 1 Oz Canister) 1 oz TOP ASDIRECTED PRN PRN Reason: Rash Last Admin: 05/29/20 15:27 Dose: 1 applic Documented by: Tramadol HCl (Tramadol 50 Mg Tab) 50 mg PO Q6H PRN PRN Reason: Pain Discontinued Medications Calcium Carbonate (Calcium Carbonate/Vitamin D3 1250 Mg-200 Unit Tab) 1 tab PO DAILY [facility] Last Admin: 05/28/20 07:33 Dose: 1 tab Documented by: Ceftriaxone Sodium (Ceftriaxone 1 Gm Vial) 1 gm IVPUSH ONETIME ONE Stop: 05/26/20 13:23 Last Admin: 05/26/20 14:45 Dose: Not Given Documented by: Cholecalciferol (Cholecalciferol (Vitamin D3) 25 Mcg Tab) 25 mcg PO DAILY [facility] Last Admin: 05/28/20 07:33 Dose: 25 mcg Documented by: Clonidine HCl (Clonidine 0.1 Mg Tab) 0.1 mg PO ONETIME ONE Stop: 05/29/20 11:16 Last Admin: 05/29/20 11:24 Dose: 0.1 mg Documented by: Ferrous Sulfate (Ferrous Sulfate 324 Mg Tab.Ec) 324 mg PO Q48H [facility] Last Admin: 05/26/20 16:12 Dose: Not Given Documented by: Furosemide (Furosemide 40 Mg/4 Ml Vial) 40 mg IVPUSH ONETIME ONE Stop: 05/30/20 07:58 Hydrochlorothiazide (Hydrochlorothiazide 25 Mg Tab) 25 mg PO DAILY [facility] Last Admin: 05/30/20 07:46 Dose: 25 mg Documented by: Sodium Chloride (Normal Saline) 1,000 mls @ 1,000 mls/hr IV .BOLUS ONE Stop: 05/26/20 14:18 Last Admin: 05/26/20 14:46 Dose: 1,000 mls/hr Documented by: Sodium Chloride (Normal Saline) 1,000 mls @ 125 mls/hr IV ASDIRECTED [facility] Stop: 05/26/20 22:29 Last Admin: 05/26/20 20:13 Dose: 125 mls/hr Documented by: Sodium Chloride (Normal Saline) 1,000 mls @ 100 mls/hr IV ASDIRECTED [facility] Stop: 05/27/20 07:59 Last Admin: 05/27/20 01:12 Dose: 100 mls/hr Documented by: Levofloxacin/Dextrose 500 mg/ (Premix) 100 mls @ 100 mls/hr IV Q24H [facility] Stop: 05/26/20 15:29 Last Admin: 05/26/20 15:23 Dose: 100 mls/hr Documented by: Levofloxacin/Dextrose (Levaquin In D5w 250 Mg/50 Ml) 50 mls @ 50 mls/hr IV Q24H [facility] Last Admin: 05/27/20 16:08 Dose: 50 mls/hr Documented by: Potassium Chloride 20 meq/ (Premix) 100 mls @ 25 mls/hr IV ONETIME ONE Stop: 05/27/20 15:29 Last Admin: 05/27/20 11:36 Dose: 25 mls/hr Documented by: Sodium Chloride (Normal Saline) 1,000 mls @ 75 mls/hr IV ASDIRECTED [facility] Stop: 05/30/20 00:43 Last Admin: 05/29/20 19:32 Dose: 75 mls/hr Documented by: Magnesium Sulfate (Magnesium Sulfate In Water 2 Gm/50 Ml) 2 gm in 50 mls @ 25 mls/hr IV ONETIME ONE Stop: 05/28/20 11:29 Last Admin: 05/28/20 10:17 Dose: 25 mls/hr Documented by: Naproxen (Naproxen 500 Mg Tab) 250 mg PO BID PRN PRN Reason: Pain Non-Formulary Medication (Ferrous Sulfate [Iron]) 325 mg PO Q48H [facility] Last Admin: 05/26/20 14:46 Dose: Not Given Documented by: Lenvatinib Mesylate [Lenvima] 10mg & 4mg Capsules *Pt Own* 0 mg PO DAILY [facility] Last Admin: 05/28/20 07:38 Dose: 14 mg Documented by: - Exam Quality Assessment: Skin Breakdown General: Alert, Oriented, Cooperative, No Acute Distress Lungs: Clear to Auscultation, Normal Respiratory Effort Cardiovascular: Regular Rate, Regular Rhythm, Murmurs GI/Abdominal Exam: Normal Bowel Sounds, Soft, Non-Tender Extremities: Normal Inspection, No Pedal Edema Skin: Warm, Dry, Other (no change to coccyx ulcer and umbilicus) Psy/Mental Status: Alert, Normal Affect, Normal Mood - Patient Data Lab Results Last 24 hrs: Laboratory Results - last 24 hr 05/30/20 05/30/20 Range/Units 07:01 07:01 WBC 5.1 (5.0-10.0) 10^3/uL RBC 4.82 (4.00-5.50) 10^6/uL Hgb 13.5 (12.0-16.0) g/dL Hct 38.8 (37.0-47.0) % MCV 80.5 L (82.0-94.0) fL MCH 28.0 (27.0-32.0) pg MCHC 34.8 (33.0-38.0) g/dL RDW Coeff of Mao 17.7 H (11.0-15.0) % Plt Count 119 L (150-400) 10^3/uL Neut % (Auto) 81.2 (35-85) % Lymph % (Auto) 13.2 (10-55) % [place] % (Auto) 5.4 (0-16) % Eos % (Auto) 0.2 (0-5) % Baso % (Auto) 0 (0-3) % Neut # (Auto) 4.17 (1.80-7.00) 10^3/uL Lymph # (Auto) 0.68 L (1.00-4.80) 10^3/uL [place] # (Auto) 0.28 (0.00-0.80) 10^3/uL Eos # (Auto) 0.01 (0.00-0.45) 10^3/uL Baso # (Auto) 0.00 10^3/uL Sodium 140 (136-145) mEq/L Potassium 3.6 (3.5-5.0) mEq/L Chloride 108 H (98-106) mEq/L Carbon Dioxide 18 L (21-32) mmol/L BUN 23 H (7-18) mg/dL Creatinine 1.0 (0.6-1.0) mg/dL Est Cr Clr Drug Dosing 39.21 mL/min Estimated GFR (MDRD) 55 L (>=60) mL/min Glucose 122 H (75-99) mg/dL Calcium 9.1 (8.4-10.1) mg/dL Magnesium 1.4 L (1.8-2.4) mg/dL NT-Pro-B Natriuret Pep 6295 H (0-1000) pg/mL Result Diagrams: 05/30/20 07:01 05/30/20 07:01 Demond Results Last 24 hrs: Microbiology 05/28/20 09:38 Stool Aerobic Culture - Preliminary Stool / Feces 05/26/20 13:00 Aerobic Blood Culture - Preliminary Blood - Venous NO GROWTH AFTER 3 DAYS Anaerobic Blood Culture - Final Sepsis Event Note - Evaluation Sepsis Screening Result: No Definite Risk - Focused Exam Vital Signs: Vital Signs Temp Pulse Pulse Resp BP BP Pulse Ox 05/30/20 07:46 176/78 H 05/30/20 07:45 58 L 176/78 H 05/30/20 07:44 176/78 H 05/30/20 04:00 97 F 85 18 170/77 H 95 05/30/20 00:00 97.5 F 72 18 157/67 H 96 - Problem List & Annotations (1) Acute renal injury SNOMED Code(s): 94649115, 60009181 Code(s): N17.9 - ACUTE KIDNEY FAILURE, UNSPECIFIED Status: Resolved Current Visit: Yes (2) General weakness SNOMED Code(s): 55621628 Code(s): R53.1 - WEAKNESS Status: Acute Current Visit: Yes (3) UTI, Urinary tract infectious disease SNOMED Code(s): 76221527 Code(s): N39.0 - URINARY TRACT INFECTION, SITE NOT SPECIFIED Status: Acute Current Visit: Yes (4) Pressure ulcer SNOMED Code(s): 343678785 Code(s): L89.90 - PRESSURE ULCER OF UNSPECIFIED SITE, UNSPECIFIED STAGE Status: Acute Current Visit: Yes Qualifiers: Pressure injury location: buttock Pressure injury stage: stage 1 Laterality: unspecified laterality Qualified Code(s): L89.301 - Pressure ulcer of unspecified buttock, stage 1 (5) Ovarian cancer SNOMED Code(s): 870447816 Code(s): C56.9 - MALIGNANT NEOPLASM OF UNSPECIFIED OVARY Status: Acute Current Visit: Yes Qualifiers: Laterality: unspecified laterality Qualified Code(s): C56.9 - Malignant neoplasm of unspecified ovary (6) Hypomagnesemia SNOMED Code(s): 919566271 Code(s): E83.42 - HYPOMAGNESEMIA Status: Acute Current Visit: Yes (7) CHF with unknown LVEF SNOMED Code(s): 45849674 Code(s): I50.9 - HEART FAILURE, UNSPECIFIED Status: Acute Current Visit: Yes - Problem List Review Problem List Initiated/Reviewed/Updated: Yes - My Orders Last 24 Hours: My Active Orders 05/30/20 08:00 Magnesium Chloride [Mag-64] 64 mg PO BIDMEALS Magnesium Sulfate/Water [Magnesium Sulfate in Water 2 GM/50 ML] 2 gm in 50 ml IV Q1H amLODIPine [Norvasc] 5 mg PO DAILY 05/31/20 08:00 Furosemide [Lasix] 40 mg PO DAILY - Plan Plan:: Will continue IV antibiotics. Laboratory work does show improved creatinine to 2.8 with yesterday being 3.8. WBC is normal. Potassium slightly low today. Will slow down IV fluids to 75ml/hr with one dose of KCl 20 mEq. Will repeat labs in am. 05/28/2020 IV antibiotics switched to Rocephin with acute kidney injury. Urine culture does show sensitivity to Rocephin. Magnesium slightly low and will give IV magnesium today. Potassium has corrected. Vital signs stable. Creatinine is currently 1.6, much improved from 3.8 on admit. Will have physical therapy work on strengthening. 05/29/2020 Patient's diarrhea had improved slightly today. Will continue IV Rocephin. Blood pressure has been quite elevated today and patient was given another dose of clonidine 0.1mg. Creatinine 1.1 today, showing ongoing downward trend. Potassium normalized. WBC is slightly lower at 3,100 today. Physical therapy to continue with strengthening. Will continue to hold Lenvima. Celia Murrell has discussed fci placement with Kiarra and her , as he doesn't feel he can care for her at this time. Patient is not a candidate for fci placement secondary to chemotherapy. had requested possible repeat PET scan to see if the chemotherapy has been helping at all. Celia discussed arranging consult with oncologist. Patient to remain under acute status today with elevat ed blood pressure. Will reevaluate and plan for swing bed admission tomorrow for ongoing strengthening as well. 05/30/2020 Overall, clinically Kiarra appears to be feeling a lot better this morning. Creatinine has corrected and IV fluids were stopped last night. Diarrhea has subsided. Will d/c urinary catheter as she has been getting a lot stronger and able to ambulate to the bathroom. Patient has gained 12lbs since admission; however has no sign of pedal edema. ProBNP was elevated this morning to 6295. Echocardiogram ordered. Patent continues to have elevated blood pressures and will Amlodipine 5mg daily. Plan to d/c hydrochlorothiazide and will start Lasix as well. Magnesium is significantly low again and will give 4gm IV today.
[2020-05-30] MEDS: cefTRIAXone 1 GM Vial IVPUSH SCH (09:06)
[2020-05-30] MEDS: Magnesium Chloride 64 MG Tab.ER PO SCH ×2 (09:14→17:20)
[2020-05-30] MEDS: amLODIPine 2.5 MG Tab PO SCH (09:14)
[2020-05-30] MEDS: Magnesium Sulfate/Water 2 GM/50 ML BAG IV SCH ×2 (09:16→11:19)
[2020-05-30] MEDS ORDERED: Magnesium Sulfate/Water 4 GM/100 ML BAG IV ONE (09:30)
[2020-05-30] MEDS ORDERED: Enoxaparin 40 MG/0.4 ML Syringe SUBCUT SCH (14:30)
[2020-05-30] MEDS: Oxyquinoline/Emollient 0.3% Oint 1 OZ Canister TOP PRN (15:00)
[2020-05-30] MEDS ORDERED: Sodium Chloride 0.9% 250 ML IV SCH (17:00)
[2020-05-30] MEDS: methylPREDNISolone Sodium Succinate 125 MG/2 ML SDV IVPUSH SCH (17:22)
[2020-05-31 05:07] VITALS: PULSE 55
[2020-05-31 07:23] VITALS: BP 156/69
[2020-05-31] MEDS: cefTRIAXone 1 GM Vial IVPUSH SCH (07:23)
[2020-05-31] MEDS: Aspirin 81 MG Tab.EC PO SCH (07:23)
[2020-05-31] MEDS: Magnesium Chloride 64 MG Tab.ER PO SCH (07:23)
[2020-05-31] MEDS: cloNIDine 0.1 MG Tab PO SCH (07:23)
[2020-05-31] MEDS: Losartan 100 MG Tab PO SCH (07:23)
[2020-05-31] MEDS: Metoprolol Succinate 100 MG Tab.ER PO SCH (07:23)
[2020-05-31] MEDS: Citalopram 10 MG Tab PO SCH (07:23)
[2020-05-31] MEDS: amLODIPine 2.5 MG Tab PO SCH (07:23)
[2020-05-31] MEDS: Nicotine 21 MG/24 Hr Patch TRDERM SCH (07:24)
[2020-05-31] MEDS: Ferrous Sulfate 324 MG Tab.EC PO SCH (07:24)
[2020-05-31] MEDS ORDERED: Furosemide 40 MG Tab PO SCH (08:00)
[2020-05-31] MEDS: Magnesium Sulfate/Water 2 GM/50 ML BAG IV SCH (08:32)
[2020-05-31 08:37] LABS: CHLORIDE,CL 104 mEq/L (98-106); SODIUM,NA 138 mEq/L (136-145)
--- NOTE | 2020-05-31 09:23 | PCM.DCSUM1 ---
Discharge Summary - Hospital Course HPI Initial Comments: See subjective note for complete HPI. Diagnosis: Stroke: No - Discharge Data Discharge Date: 05/31/20 Discharge Disposition: DC/Tfer W/I Hosp To Swing 61 Condition: Fair - Referral to Home Health Primary Care Physician: Jerrell Pretty MD - Discharge Diagnosis/Problem(s) (1) Acute renal injury SNOMED Code(s): 74293184, 58136284 ICD Code: N17.9 - ACUTE KIDNEY FAILURE, UNSPECIFIED Status: Resolved Current Visit: Yes (2) General weakness SNOMED Code(s): 55432992 ICD Code: R53.1 - WEAKNESS Status: Acute Current Visit: Yes (3) UTI, Urinary tract infectious disease SNOMED Code(s): 73936543 ICD Code: N39.0 - URINARY TRACT INFECTION, SITE NOT SPECIFIED Status: Acute Current Visit: Yes (4) Pressure ulcer SNOMED Code(s): 644078479 ICD Code: L89.90 - PRESSURE ULCER OF UNSPECIFIED SITE, UNSPECIFIED STAGE Status: Acute Current Visit: Yes Qualifiers: Pressure injury location: buttock Pressure injury stage: stage 1 Laterali ty: unspecified laterality Qualified Code(s): L89.301 - Pressure ulcer of unspecified buttock, stage 1 (5) Ovarian cancer SNOMED Code(s): 922488952 ICD Code: C56.9 - MALIGNANT NEOPLASM OF UNSPECIFIED OVARY Status: Chronic Current Visit: Yes Qualifiers: Laterality: unspecified laterality Qualified Code(s): C56.9 - Malignant neoplasm of unspecified ovary (6) Hypomagnesemia SNOMED Code(s): 647932806 ICD Code: E83.42 - HYPOMAGNESEMIA Status: Resolved Current Visit: Yes (7) CHF with unknown LVEF SNOMED Code(s): 81279153 ICD Code: I50.9 - HEART FAILURE, UNSPECIFIED Status: Chronic Current Visit: Yes - Patient Summary/Data Consults: Consultations 05/26/20 14:30 Consult to Wound Ostomy Continence Nurse [CONS] Routine PT Evaluation and Treatment [CONS] Routine - Discharge Plan *PRESCRIPTION DRUG MONITORING PROGRAM REVIEWED*: Not Applicable *COPY OF PRESCRIPTION DRUG MONITORING REPORT IN PATIENT SUSANA: Not Applicable Home Medications: Home Meds Amoxicillin/Potassium Clav [Amox-Clav 875-125 mg Tablet] 1 tab PO BID 05/26/20 [History] Aspirin [Aspirin EC] 81 mg PO DAILY 05/26/20 [History] Calcium Carbonate/Vitamin D3 [Calcium 1,000 + D3 Caplet] 1 each PO DAILY 05/26/20 [History] Cholecalciferol (Vitamin D3) [Vitamin D3] 1,000 unit PO DAILY 05/26/20 [History] Escitalopram [Lexapro] 20 mg PO DAILY 05/26/20 [History] Ferrous Sulfate [Iron] 325 mg PO Q48H 05/26/20 [History] Lenvatinib Mesylate [Lenvima] 14 mg PO DAILY 05/26/20 [History] Losartan [Cozaar] 100 mg PO DAILY 05/26/20 [History] Megestrol Acetate 400 mg PO DAILY 05/26/20 [History] Metoprolol Succinate [Toprol Xl] 100 mg PO DAILY 05/26/20 [History] Mupirocin Cream [Bactroban Crm] 15 gm TOP BID PRN 05/26/20 [History] Naproxen Sodium 220 mg PO BID PRN 05/26/20 [History] cloNIDine [Catapres] 0.1 mg PO BID 05/26/20 [History] hydroCHLOROthiazide [Hydrochlorothiazide] 25 mg PO DAILY 05/26/20 [History] traMADol [Ultram] 50 mg PO Q6H PRN 05/26/20 [History] Oxygen Therapy Mode: Room Air Forms: ED Department Discharge - Discharge Summary/Plan Comment DC Time >30 min.: Yes Discharge Summary/Plan Comment: Kiarra is doing quite well today. WBC is normal. Potassium, magnesium, creatinine normalized. ProBNP significantly improved today. Patient's weight is down since being diuresed. Plan to discharge to swing bed status for continued strengthening with physical therapy. Will continue to hold Lenvima at this time. Will recheck CBC, magnesium and BMP Wednesday to confirm stability. Please use discharge summary for Swing Bed H&P. - General Info Admission Dx/Problem (Free Text: UTI Acute Renal Injury Subjective Update: Kiarra is a 65 yo female who presented to the ED 05/26/2020 and was admitted to the hospital. Patient has been undergoing chemotherapy every 3 weeks and was suppose to have chemotherapy last week . Due to generalized weakness with associated diarrhea, N/V and diarrhea she was unable to get her last dose. She had been seen at the [place] ED on the and underwent laboratory work. States she was discharged home. She was seen again in the hospital on the 25 of May. Admitted to worsening weakness with ongoing N/V and diarrhea. Patient has been on abx secondary to cellulitis this last month. Patient had underwent an abdominal surgery quite some time ago, secondary to her cancer, and has chronically had an open wound to her abdomen. Patient was admitted with UTI and acute renal injury. 05/27/2020 Patient had incontinence with diarrhea upon my arrival. She states she has been dealing with the diarrhea for a long time now. Admits today she is feeling a little better than yesterday. States she has no new complaints. Has been eating food. States she does have a chronic cough, secondary to smoking, which she continues to be a current smoker. Denies any need for a nicotine patch. 05/28/2020 Patient continues to have frequent diarrhea. Symptoms have been ongoing for the last month. C-diff was negative. She states she continues to feel weak but is gradually getting better. Spoke with Celia yesterday and would like to get back home and continue chemotherapy when she is ready. No fevers or setbacks thru the night. She has been on a clear liquid diet and would like to try eating something. 05/29/2020 Patient's diarrhea has significantly improved. Oncologist recommended stopping the Lenvima yesterday as it has adverse effects of acute renal injury and severe diarrhea. Advised starting patient on steroids as well. She continues to have urinary catheter in place. She denies any new onset of symptoms today. Continues to be weak and has been working with physical therapy. 05/30/2020 Kiarra's diarrhea continues to improve and admits she hasn't had an episode all nigh. She admits she feels she is really starting to improve. Appetite is a lot better and currently enjoying her breakfast. No new onset of symptoms. 05/31/2020 Kiarra is in great spirits this morning. No further diarrhea. States she hasn't felt this good in a long time. She feels she is gradually continuing to get stronger and has hopes of being able to reside back at home. - Review of Systems General: Reports: No Symptoms HEENT: Reports: No Symptoms Pulmonary: Reports: No Symptoms Cardiovascular: Reports: No Symptoms Gastrointestinal: Reports: No Symptoms. Denies: Decreased Appetite, Diarrhea, Nausea, Vomiting Genitourinary: Reports: No Symptoms Musculoskeletal: Reports: No Symptoms Skin: Reports: No Symptoms Neurological: Reports: No Symptoms Psychiatric: Reports: No Symptoms - Patient Data Vitals - Most Recent: Last Vital Signs Temp 96.9 F 05/31/20 07:22 Pulse 55 L 05/31/20 07:23 Resp 18 05/31/20 07:22 BP 156/69 H 05/31/20 07:23 Pulse Ox 94 L 05/31/20 07:22 Weight - Most Recent: 186 lb 12.8 oz I&O - Last 24 hours: Intake & Output 05/30/20 05/31/20 05/31/20 22:59 06:59 14:59 Intake Total 1000 250 Output Total 2350 400 Balance -1350 -150 Lab Results - Last 24 hrs: Laboratory Results - last 24 hr 05/31/20 05/31/20 Range/Units 08:13 08:13 WBC 6.5 (5.0-10.0) 10^3/uL RBC 5.31 (4.00-5.50) 10^6/uL Hgb 15.0 (12.0-16.0) g/dL Hct 42.1 (37.0-47.0) % MCV 79.3 L (82.0-94.0) fL MCH 28.2 (27.0-32.0) pg MCHC 35.6 (33.0-38.0) g/dL RDW Coeff of Mao 18.5 H (11.0-15.0) % Plt Count 122 L (150-400) 10^3/uL Neut % (Auto) 82.2 (35-85) % Lymph % (Auto) 12.5 (10-55) % [place] % (Auto) 4.9 (0-16) % Eos % (Auto) 0.2 (0-5) % Baso % (Auto) 0.2 (0-3) % Neut # (Auto) 5.33 (1.80-7.00) 10^3/uL Lymph # (Auto) 0.81 L (1.00-4.80) 10^3/uL [place] # (Auto) 0.32 (0.00-0.80) 10^3/uL Eos # (Auto) 0.01 (0.00-0.45) 10^3/uL Baso # (Auto) 0.01 10^3/uL Sodium 138 (136-145) mEq/L Potassium 3.6 (3.5-5.0) mEq/L Chloride 104 (98-106) mEq/L Carbon Dioxide 22 (21-32) mmol/L BUN 23 H (7-18) mg/dL Creatinine 0.8 (0.6-1.0) mg/dL Est Cr Clr Drug Dosing 49.01 mL/min Estimated GFR (MDRD) > 60 (>=60) mL/min Glucose 111 H (75-99) mg/dL Calcium 9.6 (8.4-10.1) mg/dL Magnesium 2.0 (1.8-2.4) mg/dL NT-Pro-B Natriuret Pep 2865 H (0-1000) pg/mL [facility] Results - Last 24 hrs: Microbiology 05/26/20 13:00 Aerobic Blood Culture - Preliminary Blood - Venous NO GROWTH AFTER 4 DAYS Anaerobic Blood Culture - Final Med Orders - Current: Current Medications Amlodipine Besylate (Amlodipine 2.5 Mg Tab) 5 mg PO DAILY [facility] Last Admin: 05/31/20 07:23 Dose: 5 mg Documented by: Ceftriaxone Sodium (Ceftriaxone 1 Gm Vial) 1 gm IVPUSH DAILY [facility] Last Admin: 05/31/20 07:23 Dose: 1 gm Documented by: Enoxaparin Sodium (Enoxaparin 40 Mg/0.4 Ml Syringe) 40 mg SUBCUT Q24H [facility] Last Admin: 05/30/20 14:18 Dose: 40 mg Documented by: Ferrous Sulfate (Ferrous Sulfate 324 Mg Tab.Ec) 324 mg PO Q48H [facility] Last Admin: 05/31/20 07:24 Dose: 324 mg Documented by: Furosemide (Furosemide 40 Mg Tab) 40 mg PO DAILY [facility] Last Admin: 05/31/20 07:24 Dose: 40 mg Documented by: Magnesium Chloride (Magnesium Chloride 64 Mg Tab.Er) 64 mg PO BIDMEALS [facility] Last Admin: 05/31/20 07:23 Dose: 64 mg Documented by: Methylprednisolone Sodium Succinate (Methylprednisolone Sodium Succinate 125 Mg/2 Ml Sdv) 62.5 mg IVPUSH Q24H [facility] Last Admin: 05/30/20 17:22 Dose: 62.5 mg Documented by: Metoprolol Succinate (Metoprolol Succinate 100 Mg Tab.Er) 100 mg PO DAILY [facility] Last Admin: 05/31/20 07:23 Dose: 100 mg Documented by: Mupirocin (Mupirocin Oint 22 Gm Tube) 0 gm TOP BID PRN PRN Reason: Rash Non-Formulary Medication (Megestrol Acetate [Megestrol Acetate]) 400 mg PO DAILY [facility] Oxyquinoline Sulfate (Oxyquinoline/Emollient 0.3% Oint 1 Oz Canister) 1 oz TOP ASDIRECTED PRN PRN Reason: Rash Last Admin: 05/30/20 15:00 Dose: 1 applic Documented by: Tramadol HCl (Tramadol 50 Mg Tab) 50 mg PO Q6H PRN PRN Reason: Pain Discontinued Medications Acetaminophen (Acetaminophen 325 Mg Tab) 650 mg PO Q4H PRN PRN Reason: Pain (Mild 1-3)/fever Hydrocodone Bitart/Acetaminophen (Acetaminophen/Hydrocodone 325-5 Mg Tab) 1 tab PO Q4H PRN PRN Reason: Pain (moderate 4-6) Aspirin (Aspirin 81 Mg Tab.Ec) 81 mg PO DAILY [facility] Last Admin: 05/31/20 07:23 Dose: 81 mg Documented by: Calcium Carbonate (Calcium Carbonate/Vitamin D3 1250 Mg-200 Unit Tab) 1 tab PO DAILY [facility] Last Admin: 05/28/20 07:33 Dose: 1 tab Documented by: Ceftriaxone Sodium (Ceftriaxone 1 Gm Vial) 1 gm IVPUSH ONETIME ONE Stop: 05/26/20 13:23 Last Admin: 05/26/20 14:45 Dose: Not Given Documented by: Cholecalciferol (Cholecalciferol (Vitamin D3) 25 Mcg Tab) 25 mcg PO DAILY [facility] Last Admin: 05/28/20 07:33 Dose: 25 mcg Documented by: Citalopram Hydrobromide (Citalopram 10 Mg Tab) 40 mg PO DAILY [facility] Last Admin: 05/31/20 07:23 Dose: 40 mg Documented by: Clonidine HCl (Clonidine 0.1 Mg Tab) 0.1 mg PO BID [facility] Last Admin: 05/31/20 07:23 Dose: 0.1 mg Documented by: Clonidine HCl (Clonidine 0.1 Mg Tab) 0.1 mg PO ONETIME ONE Stop: 05/29/20 11:16 Last Admin: 05/29/20 11:24 Dose: 0.1 mg Documented by: Enoxaparin Sodium (Enoxaparin 30 Mg/0.3 Ml Syringe) 30 mg SUBCUT Q24H [facility] Last Admin: 05/29/20 15:26 Dose: 30 mg Documented by: Ferrous Sulfate (Ferrous Sulfate 324 Mg Tab.Ec) 324 mg PO Q48H [facility] Last Admin: 05/26/20 16:12 Dose: Not Given Documented by: Furosemide (Furosemide 40 Mg/4 Ml Vial) 40 mg IVPUSH ONETIME ONE Stop: 05/30/20 07:58 Last Admin: 05/30/20 09:28 Dose: 40 mg Documented by: Furosemide (Furosemide 40 Mg/4 Ml Vial) 40 mg IVPUSH ONETIME ONE Stop: 05/30/20 09:31 Last Admin: 05/30/20 09:37 Dose: Not Given Documented by: Hydrochlorothiazide (Hydrochlorothiazide 25 Mg Tab) 25 mg PO DAILY [facility] Last Admin: 05/30/20 07:46 Dose: 25 mg Documented by: Sodium Chloride (Normal Saline) 1,000 mls @ 1,000 mls/hr IV .BOLUS ONE Stop: 05/26/20 14:18 Last Admin: 05/26/20 14:46 Dose: 1,000 mls/hr Documented by: Sodium Chloride (Normal Saline) 1,000 mls @ 125 mls/hr IV ASDIRECTED [facility] Stop: 05/26/20 22:29 Last Admin: 05/26/20 20:13 Dose: 125 mls/hr Documented by: Sodium Chloride (Normal Saline) 1,000 mls @ 100 mls/hr IV ASDIRECTED [facility] Stop: 05/27/20 07:59 Last Admin: 05/27/20 01:12 Dose: 100 mls/hr Documented by: Levofloxacin/Dextrose 500 mg/ (Premix) 100 mls @ 100 mls/hr IV Q24H [facility] Stop: 05/26/20 15:29 Last Admin: 05/26/20 15:23 Dose: 100 mls/hr Documented by: Levofloxacin/Dextrose (Levaquin In D5w 250 Mg/50 Ml) 50 mls @ 50 mls/hr IV Q24H [facility] Last Admin: 05/27/20 16:08 Dose: 50 mls/hr Documented by: Potassium Chloride 20 meq/ (Premix) 100 mls @ 25 mls/hr IV ONETIME ONE Stop: 05/27/20 15:29 Last Admin: 05/27/20 11:36 Dose: 25 mls/hr Documented by: Sodium Chloride (Normal Saline) 1,000 mls @ 75 mls/hr IV ASDIRECTED [facility] Stop: 05/30/20 00:43 Last Admin: 05/29/20 19:32 Dose: 75 mls/hr Documented by: Magnesium Sulfate (Magnesium Sulfate In Water 2 Gm/50 Ml) 2 gm in 50 mls @ 25 mls/hr IV ONETIME ONE Stop: 05/28/20 11:29 Last Admin: 05/28/20 10:17 Dose: 25 mls/hr Documented by: Magnesium Sulfate (Magnesium Sulfate In Water 2 Gm/50 Ml) 2 gm in 50 mls @ 50 mls/hr IV Q1H [facility] Stop: 05/30/20 09:59 Last Admin: 05/31/20 08:32 Dose: Not Given Documented by: Magnesium Sulfate (Magnesium Sulfate In Water 2 Gm/50 Ml) 4 gm in 100 mls @ 25 mls/hr IV ONETIME ONE Stop: 05/30/20 13:29 Last Admin: 05/30/20 09:38 Dose: 25 mls/hr Documented by: Sodium Chloride (Normal Saline) 250 mls @ 250 mls/hr IV ASDIRECTED [facility] Last Admin: 05/30/20 17:19 Dose: 250 mls/hr Documented by: Losartan Potassium (Losartan 100 Mg Tab) 100 mg PO DAILY [facility] Last Admin: 05/31/20 07:23 Dose: 100 mg Documented by: Morphine Sulfate (Morphine 2 Mg/Ml Syringe) 2 mg IVPUSH Q2H PRN PRN Reason: Pain (severe 7-10) Naproxen (Naproxen 500 Mg Tab) 250 mg PO BID PRN PRN Reason: Pain Nicotine (Nicotine 21 Mg/24 Hr Patch) 21 mg TRDERM DAILY [facility] Last Admin: 05/31/20 07:24 Dose: 21 mg Documented by: Non-Formulary Medication (Ferrous Sulfate [Iron]) 325 mg PO Q48H [facility] Last Admin: 05/26/20 14:46 Dose: Not Given Documented by: Lenvatinib Mesylate [Lenvima] 10mg & 4mg Capsules *Pt Own* 0 mg PO DAILY [facility] Last Admin: 05/28/20 07:38 Dose: 14 mg Documented by: Ondansetron HCl (Ondansetron 4 Mg/2 Ml Sdv) 4 mg IV Q6H PRN PRN Reason: Nausea/Vomiting
== END 2020-05-31 09:17 | disposition swing bed (61) | DRG 683 ==
LOC: CC.ED 11:58 → CC.MS 13:42 → UNDOADMIN 14:00
PROVIDERS: ADMIT Nurse Practitioner; ATTEND Family Medicine
DX: N17.9 Acute kidney failure, unspecified (principal); N39.0 Urinary tract infection, site not specified; N28.9 Disorder of kidney and ureter, unspecified; R53.1 Weakness; C56.9 Malignant neoplasm of unspecified ovary; L89.301 Pressure ulcer of unspecified buttock, stage 1; E83.42 Hypomagnesemia; I50.9 Heart failure, unspecified; Z90.49 Acquired absence of other specified parts of digestive tract; I11.0 Hypertensive heart disease with heart failure; C78.7 Secondary malignant neoplasm of liver and intrahepatic bile duct; C79.11 Secondary malignant neoplasm of bladder; H54.7 Unspecified visual loss; I10 Essential (primary) hypertension; Z91.030 Bee allergy status; Z79.82 Long term (current) use of aspirin; Z79.899 Other long term (current) drug therapy; Z20.822 Contact with and (suspected) exposure to COVID-19
CPT/HCPCS: 36415; 71045; 80048; 80053; 81001; 82150; 82550; 83605; 83690; 83735; 83880; 85025; 86140; 87040; 87045; 87046; 87070; 87086; 87088; 87186; 87493; 89055; 93306; 97110-GP; 97161-GP; 99285-25; A9270-GY; J0696; J1650; J1940; J1956; J2930; J3475; J3480; J7030; J7050; U0002

== ENCOUNTER 2020-09-09 12:28 | Inpatient (IN) | payer MEDICARE, BC ==
--- NOTE | 2020-09-09 13:08 | EDM.PDOC ---
ED HPI GENERAL MEDICAL PROBLEM - General Chief Complaint: General Stated Complaint: VOMITTING Time Seen by Provider: 09/09/20 13:08 Source of Information: Reports: Patient History Limitations: Reports: No Limitations - History of Present Illness INITIAL COMMENTS - FREE TEXT/NARRATIVE: Kiarra is a 65 yo female with PMH of metastatic endometrial cancer who presents to the ED via EMS with c/o nausea, vomiting, diarrhea and weakness. Reports her bottom is "just raw." She reports she is currently doing chemo therapy. Has had diarrhea for quite some time now. Reports the the last few days she has been unable to ambulate due to weakness and has just been lying in bed. 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 She has very large pressure sores to buttocks and back. Is incontinent of stool. Was seen in [place] ED and discharged home 09/05/2020 with same symptoms. She reports she does not feel she can care for herself at home due to her significant weakness. Associated Symptoms: Reports: Nausea/Vomiting, Weakness, Other (diarrhea, pressure sores). Denies: Confusion, Chest Pain, Cough, cough w sputum, Diaphoresis, Fever/Chills, Headaches, Loss of Appetite, Malaise, Rash, Seizure, Shortness of Breath, Syncope - Related Data Allergies Allergy/AdvReac Type Severity Reaction Status Date / Time venom-honey bee Allergy Anaphylactic Verified 09/09/20 12:51 [bee venom (honey bee)] Shock Home Meds: Home Meds Aspirin [Aspirin EC] 81 mg PO DAILY 05/26/20 [History] Calcium Carbonate/Vitamin D3 [Calcium 1,000 + D3 Caplet] 1 each PO DAILY 05/26/20 [History] Cholecalciferol (Vitamin D3) [Vitamin D3] 1,000 unit PO DAILY 05/26/20 [History] Escitalopram [Lexapro] 20 mg PO DAILY 05/26/20 [History] Ferrous Sulfate [Iron] 325 mg PO Q48H 05/26/20 [History] Losartan [Cozaar] 100 mg PO DAILY 05/26/20 [History] Megestrol Acetate 400 mg PO DAILY 05/26/20 [History] Metoprolol Succinate [Toprol Xl] 100 mg PO DAILY 05/26/20 [History] Mupirocin Cream [Bactroban Crm] 15 gm TOP BID PRN 05/26/20 [History] Naproxen Sodium 220 mg PO BID PRN 05/26/20 [History] cloNIDine [Catapres] 0.1 mg PO BID 05/26/20 [History] hydroCHLOROthiazide [Hydrochlorothiazide] 25 mg PO DAILY 05/26/20 [History] traMADol [Ultram] 50 mg PO Q6H PRN 05/26/20 [History] Furosemide [Lasix] 20 mg PO DAILY #30 tablet 06/11/20 [Rx] Magnesium Chloride [Mag-64] 64 mg PO BIDMEALS tab.er 06/11/20 [Rx] Nicotine [Habitrol] 14 mg TRDERM DAILY patch 06/11/20 [Rx] Potassium Chloride [Klor-Con 10] 10 meq PO DAILY #30 tab.er 06/11/20 [Rx] Past Medical History HEENT History: Reports: Impaired Vision Cardiovascular History: Reports: Hypertension Oncologic (Cancer) History: Reports: Ovarian - Infectious Disease History Infectious Disease History: Reports: None - Past Surgical History GI Surgical History: Reports: Appendectomy, Cholecystectomy Musculoskeletal Surgical History: Reports: Other (See Below) Other Musculoskeletal Surgeries/Procedures:: HEEL SPUR SURGERY Social & Family History - Family History Family Medical History: No Pertinent Family History - Caffeine Use Caffeine Use: Reports: Coffee ED ROS GENERAL - Review of Systems Review Of Systems: Comprehensive ROS is negative, except as noted in HPI. ED EXAM, GENERAL - Physical Exam Exam: See Below Exam Limited By: No Limitations General Appearance: Alert, WD/WN, No Apparent Distress Eye Exam: Bilateral Eye: EOMI, Normal Fundi, Normal Inspection, PERRL Throat/Mouth: Other (dry mucous membranes) Head: Atraumatic, Normocephalic Neck: Normal Inspection, Supple, Non-Tender, Full Range of Motion Respiratory/Chest: No Respiratory Distress, Lungs Clear, Normal Breath Sounds, No Accessory Muscle Use, Chest Non-Tender Cardiovascular: Normal Peripheral Pulses, Regular Rate, Rhythm, No Gallop, No JVD, No Murmur, No Rub GI/Abdominal: Normal Bowel Sounds, Soft, Non-Tender, No Organomegaly, No Distention, No Abnormal Bruit, No Mass Back Exam: Normal Inspection, Full Range of Motion, NT Extremities: Normal Inspection, Normal Range of Motion, Non-Tender, No Pedal Edema, Normal Capillary Refill, Pedal Edema (3+ pitting) Neurological: Alert, Oriented, Normal Cognition, No Motor/Sensory Deficits, Abno rmal Gait (unable due to weakness) Psychiatric: Normal Affect, Normal Mood Skin Exam: Decubitus, Wound/Incision, Other (See pictures in nurses notes ) Course - Vital Signs Last Recorded V/S: Last Vital Signs Temp 97.2 F 09/09/20 18:48 Pulse 53 L 09/09/20 18:48 Resp 18 09/09/20 18:48 BP 120/64 09/09/20 21:31 Pulse Ox 97 09/09/20 18:48 - Orders/Labs/Meds Orders: Medication Orders Acetaminophen (Acetaminophen 325 Mg Tab) 650 mg PO Q4H PRN PRN Reason: Pain (Mild 1-3)/fever Calcium Carbonate (Calcium Carbonate/Vitamin D3 1250 Mg-5 Mcg Tab) 1 tab PO DAILY [facility] Cholecalciferol (Cholecalciferol (Vitamin D3) 25 Mcg Tab) 25 mcg PO DAILY [facility] Citalopram Hydrobromide (Citalopram 10 Mg Tab) 40 mg PO DAILY [facility] Clonidine HCl (Clonidine 0.1 Mg Tab) 0.1 mg PO BID [facility] Last Admin: 09/09/20 21:31 Dose: 0.1 mg Documented by: ALEX Enoxaparin Sodium (Enoxaparin 30 Mg/0.3 Ml Syringe) 30 mg SUBCUT Q24H [facility] Last Admin: 09/09/20 21:32 Dose: 30 mg Documented by: ALEX Ferrous Sulfate (Ferrous Sulfate 324 Mg Tab.Ec) 324 mg PO Q48H [facility] Furosemide (Furosemide 20 Mg Tab) 20 mg PO DAILY [facility] Hydrochlorothiazide (Hydrochlorothiazide 25 Mg Tab) 25 mg PO DAILY [facility] Losartan Potassium (Losartan 25 Mg Tab) 50 mg PO DAILY [facility] Magnesium Chloride (Magnesium Chloride 64 Mg Tab.Er) 64 mg PO BIDMEALS [facility] Last Admin: 09/09/20 21:31 Dose: 64 mg Documented by: ALEX Metoprolol Succinate (Metoprolol Succinate 100 Mg Tab.Er) 100 mg PO DAILY [facility] Nicotine (Nicotine 14 Mg/24 Hr Patch) 14 mg TRDERM DAILY [facility] Last Admin: 09/09/20 21:31 Dose: Not Given Documented by: ALEX Non-Formulary Medication (Megestrol Acetate [Megestrol Acetate]) 400 mg PO DAILY [facility] Potassium Chloride (Potassium Chloride 10 Meq Tab.Er) 10 meq PO DAILY [facility] Tramadol HCl (Tramadol 50 Mg Tab) 50 mg PO Q6H PRN PRN Reason: Pain Labs: Laboratory Tests 09/09/20 09/09/20 09/09/20 Range/Units 12:30 13:00 13:00 WBC 6.7 (4.0-11.0) 10^3/uL RBC 3.69 L (4.00-5.50) x10^6/uL Hgb 10.6 L (12.0-16.0) g/dL Hct 31.9 L (37.0-47.0) % MCV 86.4 (83.0-97.0) fL MCH 28.7 (27.0-32.0) pg MCHC 33.2 (32.0-36.0) g/dL RDW Coeff of Mao 14.3 (11.0-15.0) % Plt Count 210 (150-400) 10^3/uL Immature Gran % (Auto) 0.4 (0.0-4.9) % Neut % (Auto) 85.2 H (41-71) % Lymph % (Auto) 5.5 L (24-44) % Benson % (Auto) 6.1 (0-10) % Eos % (Auto) 2.4 (0-6) % Baso % (Auto) 0.4 (0-1) % Neut # (Auto) 5.70 (1.80-8.00) x10^3/uL Lymph # (Auto) 0.37 L (0.60-5.00) 10^3/uL Benson # (Auto) 0.41 (0.00-1.50) 10^3/uL Eos # (Auto) 0.16 (0.00-1.50) 10^3/uL Baso # (Auto) 0.03 (0.00-0.50) 10^3/uL Immature Gran # (Auto) 0.03 (0.00-0.49) 10^3/uL Sodium 133 L (136-145) mEq/L Potassium 4.3 (3.5-5.0) mEq/L Chloride 100 (98-106) mEq/L Carbon Dioxide 21 (21-32) mmol/L BUN 50 H D (7-18) mg/dL Creatinine 1.5 H D (0.6-1.0) mg/dL Est Cr Clr Drug Dosing TNP Estimated GFR (MDRD) 35 L (>=60) mL/min Glucose 80 (75-99) mg/dL Calcium 8.2 L (8.4-10.1) mg/dL Magnesium 2.0 (1.8-2.4) mg/dL Total Bilirubin 0.9 (0.0-1.0) mg/dL AST 48 H (15-37) U/L ALT 12 (12-78) U/L Alkaline Phosphatase 224 H (46-116) U/L Troponin I < 0.017 (0.00-0.06) ng/mL C-Reactive Protein 8.5 H (0.2-0.8) mg/dL NT-Pro-B Natriuret Pep 4264 H (0-1000) pg/mL Total Protein 5.3 L (6.4-8.2) g/dL Albumin 1.9 L (3.4-5.0) g/dL Urine Color Dark yellow (YELLOW) Urine Appearance Slightly cloudy (CLEAR) Urine pH 5.5 (4.5-8.0) Ur Specific [place] 1.020 (1.003-1.020) Urine Protein Negative (NEGATIVE) mg/dL Urine Glucose (UA) Negative (NEGATIVE) mg/dL Urine Ketones Negative (NEGATIVE) mg/dL Urine Occult Blood Negative (NEGATIVE) Urine Nitrite Negative (NEGATIVE) Urine Bilirubin Negative (NEGATIVE) Urine Urobilinogen 0.2 (0.2-1.0) EU/dL Ur Leukocyte Esterase Negative (NEGATIVE) Meds: Medications Generic Name Dose Route Start Last Admin Trade Name Bradq PRN Reason Stop Dose Admin Acetaminophen 650 mg 09/09/20 19:09 Acetaminophen 325 Mg Tab PO Q4H PRN Pain (Mild 1-3)/fever Calcium Carbonate 1 tab 09/10/20 08:00 Calcium Carbonate/Vitamin D3 1250 Mg-5 Mcg Tab PO DAILY [facility] Cholecalciferol 25 mcg 09/10/20 08:00 Cholecalciferol (Vitamin D3) 25 Mcg Tab PO DAILY [facility] Citalopram Hydrobromide 40 mg 09/10/20 08:00 Citalopram 10 Mg Tab PO DAILY [facility] Clonidine HCl 0.1 mg 09/09/20 20:00 09/09/20 21:31 Clonidine 0.1 Mg Tab PO 0.1 mg BID [facility] Administration Enoxaparin Sodium 30 mg 09/09/20 20:00 09/09/20 21:32 Enoxaparin 30 Mg/0.3 Ml Syringe SUBCUT 30 mg Q24H [facility] Administration Ferrous Sulfate 324 mg 09/10/20 08:00 Ferrous Sulfate 324 Mg Tab.Ec PO Q48H [facility] Furosemide 20 mg 09/10/20 08:00 Furosemide 20 Mg Tab PO DAILY [facility] Hydrochlorothiazide 25 mg 09/10/20 08:00 Hydrochlorothiazide 25 Mg Tab PO DAILY [facility] Losartan Potassium 50 mg 09/10/20 08:00 Losartan 25 Mg Tab PO DAILY [facility] Magnesium Chloride 64 mg 09/09/20 19:30 09/09/20 21:31 Magnesium Chloride 64 Mg Tab.Er PO 64 mg BIDMEALS [facility] Administration Metoprolol Succinate 100 mg 09/10/20 08:00 Metoprolol Succinate 100 Mg Tab.Er PO DAILY [facility] Nicotine 14 mg 09/09/20 19:30 09/09/20 21:31 Nicotine 14 Mg/24 Hr Patch TRDERM Not Given DAILY [facility] Non-Formulary Medication 400 mg 09/10/20 08:00 Megestrol Acetate [Megestrol Acetate] PO DAILY [facility] Potassium Chloride 10 meq 09/10/20 08:00 Potassium Chloride 10 Meq Tab.Er PO DAILY [facility] Tramadol HCl 50 mg 09/09/20 19:14 Tramadol 50 Mg Tab PO Q6H PRN Pain Discontinued Medications Generic Name Dose Route Start Last Admin Trade Name Freq PRN Reason Stop Dose Admin Aspirin 81 mg 09/10/20 08:00 Aspirin 81 Mg Tab.Ec PO DAILY [facility] Sodium Chloride 500 mls @ 250 mls/hr 09/09/20 14:15 09/09/20 14:24 Normal Saline IV 250 mls/hr .BOLUS [facility] Administration Losartan Potassium 100 mg 09/10/20 08:00 Losartan 100 Mg Tab PO DAILY [facility] Non-Formulary Medication 220 mg 09/09/20 19:14 Naproxen Sodium [Naproxen Sodium] PO BID PRN Pain Ondansetron HCl 4 mg 09/09/20 14:39 09/09/20 16:23 Ondansetron 4 Mg/2 Ml Sdv IVPUSH 09/09/20 14:40 Not Given STAT STA Departure - Departure Time of Disposition: 16:30 Disposition: Admitted As Inpatient 64 Condition: Fair Clinical Impression: General weakness, Renal insufficiency Pressure ulcer Qualifiers: Pressure injury location: buttock Pressure injury stage: stage 1 Laterality: unspecified laterality Qualified Code(s): L89.301 - Pressure ulcer of unspecified buttock, stage 1 Ovarian cancer Qualifiers: Laterality: unspecified laterality Qualified Code(s): C56.9 - Malignant neoplasm of unspecified ovary Diarrhea Qualifiers: Diarrhea type: unspecified type Qualified Code(s): R19.7 - Diarrhea, unspecified - Discharge Information *PRESCRIPTION DRUG MONITORING PROGRAM REVIEWED*: Not Applicable *COPY OF PRESCRIPTION DRUG MONITORING REPORT IN PATIENT SUSANA: Not Applicable Sepsis Event Note (ED) - Focused Exam Vital Signs: Vital Signs Temp Pulse Resp BP Pulse Ox 09/09/20 12:53 97.2 F 58 L 18 103/54 L 97 - Problem List & Annotations (1) General weakness SNOMED Code(s): 21021494 Code(s): R53.1 - WEAKNESS Status: Acute Current Visit: No (2) Pressure ulcer SNOMED Code(s): 591738094 Code(s): L89.90 - PRESSURE ULCER OF UNSPECIFIED SITE, UNSPECIFIED STAGE Status: Acute Current Visit: No Qualifiers: Pressure injury location: buttock Pressure injury stage: stage 2 Laterality: unspecified laterality Qualified Code(s): L89.302 - Pressure ulcer of unspecified buttock, stage 2 (3) Renal insufficiency SNOMED Code(s): 037308409, 143232356 Code(s): N28.9 - DISORDER OF KIDNEY AND URETER, UNSPECIFIED Status: Acute Current Visit: No (4) Ovarian cancer SNOMED Code(s): 271174568 Code(s): C56.9 - MALIGNANT NEOPLASM OF UNSPECIFIED OVARY Status: Chronic Current Visit: No Qualifiers: Laterality: unspecified laterality Qualified Code(s): C56.9 - Malignant neoplasm of unspecified ovary - Problem List Review Problem List Initiated/Reviewed/Updated: Yes - Assessment/Plan Admission H&P: Please use this note as an admission H&P Assessment:: Metastatic Ovarian Cancer Diarrhea Generalized Weakness Renal Insufficiency Pressure Ulcers, multiple Vulnerable Adult Plan: Lab work relatively stable. Creatinine elevated to 1.5. CRP elevated to 8.5. ProBNP elevated to 4262. Patient with multiple pressure sores to buttocks, back and joanna area. Unable to care for self at home. Frequent position changes/wound cares. Has been incontinent of multiple loose stools while in ED. Presume chemotherapy induced but will obtain stool samples to r/o infectious etiology. Consult Case management to assist with discharge planning. Do not feel patient able to take care of self and may need SNF placement. Consult PT for strengthening/assess home safety. Patient admitted acute. Transferred to floor in stable condition.
[2020-09-09 13:19] LABS: CHLORIDE,CL 100 mEq/L (98-106); SODIUM,NA 133 mEq/L (136-145)
[2020-09-09] MEDS ORDERED: Sodium Chloride 0.9% 500 ML IV SCH (14:15)
[2020-09-09] MEDS ORDERED: Ondansetron 4 MG/2 ML SDV IVPUSH STA (14:39)
[2020-09-09] MEDS ORDERED: Acetaminophen 325 MG Tab PO PRN (19:09)
[2020-09-09] MEDS ORDERED: traMADol 50 MG Tab PO PRN (19:14)
[2020-09-09] MEDS ORDERED: Non-Formulary Medication 1 Each (Naproxen Sodium [Naproxen Sodium] 220 MG Capsule) PO PRN (19:14)
[2020-09-09] MEDS: Magnesium Chloride 64 MG Tab.ER PO SCH (21:31)
[2020-09-09] MEDS: Nicotine 14 MG/24 Hr Patch TRDERM SCH (21:31)
[2020-09-09] MEDS: cloNIDine 0.1 MG Tab PO SCH (21:31)
[2020-09-09] MEDS: Enoxaparin 30 MG/0.3 ML Syringe SUBCUT SCH (21:32)
[2020-09-10] MEDS: Citalopram 10 MG Tab PO SCH (07:38)
[2020-09-10] MEDS: Magnesium Chloride 64 MG Tab.ER PO SCH ×2 (07:47→18:50)
[2020-09-10] MEDS: Hydrochlorothiazide 25 MG Tab PO SCH (07:47)
[2020-09-10] MEDS: Losartan 25 MG Tab PO SCH (07:47)
[2020-09-10] MEDS: Furosemide 20 MG Tab PO SCH (07:48)
[2020-09-10] MEDS: Ferrous Sulfate 324 MG Tab.EC PO SCH (07:48)
[2020-09-10] MEDS: Calcium Carbonate/Vitamin D3 1250 MG-5 MCG Tab PO SCH (07:48)
[2020-09-10] MEDS: Nicotine 14 MG/24 Hr Patch TRDERM SCH (07:49)
[2020-09-10] MEDS ORDERED: Aspirin 81 MG Tab.EC PO SCH (08:00)
[2020-09-10] MEDS ORDERED: Losartan 100 MG Tab PO SCH (08:00)
[2020-09-10] MEDS ORDERED: MEGESTROL ACETATE 400 MG/10 ML PO SCH (08:00)
[2020-09-10] MEDS: cloNIDine 0.1 MG Tab PO SCH ×2 (08:16→19:34)
[2020-09-10] MEDS: Metoprolol Succinate 100 MG Tab.ER PO SCH (12:13)
[2020-09-10] MEDS: Cholecalciferol (Vitamin D3) 25 MCG Tab PO SCH (13:29)
[2020-09-10] MEDS: Potassium Chloride 10 MEQ Tab.ER PO SCH (13:29)
[2020-09-10] MEDS: Enoxaparin 30 MG/0.3 ML Syringe SUBCUT SCH (19:34)
[2020-09-11] MEDS: Magnesium Chloride 64 MG Tab.ER PO SCH ×2 (07:54→16:29)
[2020-09-11] MEDS: Hydrochlorothiazide 25 MG Tab PO SCH (07:54)
[2020-09-11] MEDS: Menthol/Zinc Oxide Ointment 113 GM Tube TOP SCH ×2 (07:54→19:39)
[2020-09-11] MEDS: Potassium Chloride 10 MEQ Tab.ER PO SCH (07:54)
[2020-09-11] MEDS: Furosemide 20 MG Tab PO SCH (07:55)
[2020-09-11] MEDS: Metoprolol Succinate 100 MG Tab.ER PO SCH (07:55)
[2020-09-11] MEDS: Cholecalciferol (Vitamin D3) 25 MCG Tab PO SCH (07:55)
[2020-09-11] MEDS: cloNIDine 0.1 MG Tab PO SCH ×2 (07:55→19:42)
[2020-09-11] MEDS: Citalopram 10 MG Tab PO SCH (07:55)
[2020-09-11] MEDS: Calcium Carbonate/Vitamin D3 1250 MG-5 MCG Tab PO SCH (07:55)
[2020-09-11] MEDS: Losartan 25 MG Tab PO SCH (07:55)
[2020-09-11] MEDS: Nicotine 14 MG/24 Hr Patch TRDERM SCH (08:03)
[2020-09-11] MEDS ORDERED: cefTRIAXone 1 GM Vial IVPUSH SCH (16:00)
--- NOTE | 2020-09-11 16:13 | PN ---
DATE: 09/10/2020 S: Kiarra was admitted yesterday for persistent nausea, vomiting, diarrhea. She is a patient with unfortunately metastatic ovarian cancer, was undergoing chemo. She has had persistent diarrhea, breakdown of the perirectal area, and apparently a lot of pressure sores in her back. cannot take care of her at home. She has been in the [place] Emergency Room for similar symptoms recently. Jena saw her yesterday, talked about some IV fluids and sending her home, but she just felt she could not. She has been afebrile since being here. She has been satting in the upper 90s. Her diarrhea is less, she has not had any yet today. She denies any complaints of pain. She was able to eat this morning. O: GENERAL: She is in her usual state. She is very pleasant, alert, and cooperative. Does not appear in distress. HEENT: Grossly benign. NECK: Supple without adenopathy. LUNGS: Lung sounds are clear. CARDIAC: Tones are regular. ABDOMEN: Obese and soft. She has no palpable tenderness throughout the entire abdomen. No guarding, rebound, or rigidity. EXTREMITIES: No peripheral edema. She has breakdown of the perineal area with marked erythema, and apparently on her back multiple areas of small pressure sores all stage 1 I am told. I did not roll her today as she just lied back down. ASSESSMENT: 1. OVARIAN CANCER WITH METASTASIS. 2. CHEMO-INDUCED NAUSEA, VOMITING, DIARRHEA. 3. MULTIPLE PRESSURE SORES. 4. CHRONIC HYPERTENSION. 5. CHRONIC KIDNEY DISEASE. P: Stool studies have been ordered and we are waiting on them. She has been getting IV fluids and it looks like now she is starting to tolerate oral intake better. We will have PT consult for wound care. She is going to have Social Work consult for possible placement. Otherwise, no changes at this time. JOSAFAT/WILLIAM /[id number]
[2020-09-11] MEDS: Enoxaparin 30 MG/0.3 ML Syringe SUBCUT SCH (19:39)
[2020-09-12 07:24] VITALS: PULSE 56
[2020-09-12 07:25] VITALS: BP 132/39
[2020-09-12] MEDS: Furosemide 20 MG Tab PO SCH (07:31)
[2020-09-12] MEDS: Citalopram 10 MG Tab PO SCH (07:31)
[2020-09-12] MEDS: Ferrous Sulfate 324 MG Tab.EC PO SCH (07:31)
[2020-09-12] MEDS: Hydrochlorothiazide 25 MG Tab PO SCH (07:31)
[2020-09-12] MEDS: Potassium Chloride 10 MEQ Tab.ER PO SCH (07:31)
[2020-09-12] MEDS: Calcium Carbonate/Vitamin D3 1250 MG-5 MCG Tab PO SCH (07:31)
[2020-09-12] MEDS: Cholecalciferol (Vitamin D3) 25 MCG Tab PO SCH (07:31)
[2020-09-12] MEDS: Magnesium Chloride 64 MG Tab.ER PO SCH (07:31)
[2020-09-12] MEDS: Nicotine 14 MG/24 Hr Patch TRDERM SCH (07:33)
[2020-09-12] MEDS: Metoprolol Succinate 100 MG Tab.ER PO SCH (07:34)
[2020-09-12] MEDS: Menthol/Zinc Oxide Ointment 113 GM Tube TOP SCH (07:34)
[2020-09-12] MEDS ORDERED: Metoprolol Succinate 100 MG Tab.ER ONE (07:46)
--- NOTE | 2020-09-12 08:06 | PN ---
DATE: 09/11/2020 S: Ms. Tuttle is doing better. She feels no further nausea or abdominal pain. Her diarrhea is markedly better. She did have stool studies which have been negative thus far. Vital signs have remained stable. She has not been hypotensive. She is saturating in the mid 90s. She has been afebrile, and her blood pressures have been fine. Lab work from today is reviewed and her counts are stable. Kidney functions are fine as well. Her CRP has slightly come down. PT did work with her and has dressed her wounds on her back. Staff feel there is a little bit of discharge but no odor and minimal erythema. O: GENERAL: On exam today, she is pleasant, alert, and cooperative. HEENT: Grossly benign. NECK: Veins are flat. LUNGS: Sounds appear to be clear in all harris. CARDIAC: Tones are regular. ABDOMEN: Soft and flat with good bowel sounds. I do not appreciate any significant tenderness. EXTREMITIES: Have no edema. ASSESSMENT: 1. METASTATIC OVARIAN CARCINOMA. 2. DIARRHEA, LIKELY CHEMO RELATED WITH THUS FAR NEGATIVE STOOL STUDIES. 3. MULTIPLE PRESSURE SORES OF SACRUM AND BACK. 4. HYPERTENSION, CONTROLLED. 5. DEPRESSION WITH ANXIETY. P: I had a long discussion with the patient who has both and two children in the room with her. She believes at this time she would like to forego any further chemotherapy and does consent to fdc placement. is present, just feels he cannot take care of her at this time until she gets stronger. I encouraged her to continue to follow up with her oncologist at least as an outpatient now. She does have chemo planned I believe for 09/23 and they will need to address that further if she desires, she understands. We are waiting to see if she can be accepted to fdc as early as tomorrow. For now, continue with PT for treatment of her pressure sores. I am going to put her on Rocephin while she is here for empiric treatment for her sores and I will start outpatient Keflex for a short time while her wounds are healing. No other changes at this time. JOSAFAT/WILLIAM /[id number]
[2020-09-12] MEDS: Losartan 25 MG Tab PO SCH (08:41)
[2020-09-12] MEDS: cloNIDine 0.1 MG Tab PO SCH (08:42)
--- NOTE | 2020-09-12 10:43 | DISCH ---
ADMISSION DIAGNOSES: 1. Diarrhea. 2. Weakness. 3. Pressure ulcer. 4. Ovarian cancer. DISCHARGE DIAGNOSIS: 1. METASTATIC OVARIAN CANCER. 2. DIARRHEA, LIKELY SECONDARY TO CHEMOTHERAPY. 3. WEAKNESS, IMPROVED. 4. MULTIPLE STAGE I AND II PRESSURE SORES OF SACRUM. 5. HYPERTENSION. 6. DEPRESSION. HISTORY: The patient has known metastatic ovarian CA. She has been getting chemotherapy. She has been having progressive poor intake and diarrhea, and presented to our emergency room with complaints of weakness. She was evaluated appropriately and admitted ultimately for IV fluids and routine cares. Stool studies were ordered. At the time of her admission, she was also found to have multiple shallow pressure ulcers in the sacral area and in her back just from lying in bed without much help at home. The family is really unable to care for her. HOSPITAL COURSE: The patient did well while here. Her diarrhea has progressively improved. She has been able to eat well. Pressure sores have been evaluated by Physical Therapy and they were treated appropriately. We did start her on Rocephin and we will send her out on oral Keflex, so she does have drainage from a few of these. Her lab work has otherwise been stable. Her CRP is up slightly, likely related to her cancer and infected source. Consultations have been done during her stay and she feels she can no longer go home. She agrees to admission at [facility]. She has decided she wants no further chemo for treatment of her cancer and that is something she will discuss further with Oncology in the near future. Routine repeat lab work has been accomplished, and her CBC, metabolic panels are stable at this time. COMPLICATIONS: During her stay were none. CONSULTATIONS: None. DISPOSITION: [facility]. JOSAFAT/WILLIAM /[id number]
== END 2020-09-12 10:00 | DRG 593 ==
LOC: CC.ED 12:28 → UNDOADMIN 16:33 → CC.ED 16:33 → CC.MS 16:33
PROVIDERS: ADMIT Nurse Practitioner Family; ATTEND Family Medicine
DX: R53.1 Weakness (principal); N28.9 Disorder of kidney and ureter, unspecified; L89.301 Pressure ulcer of unspecified buttock, stage 1; L89.152 Pressure ulcer of sacral region, stage 2; R19.7 Diarrhea, unspecified; K52.1 Toxic gastroenteritis and colitis; I10 Essential (primary) hypertension; C56.9 Malignant neoplasm of unspecified ovary; C79.9 Secondary malignant neoplasm of unspecified site; L89.322 Pressure ulcer of left buttock, stage 2; R15.9 Full incontinence of feces; L89.312 Pressure ulcer of right buttock, stage 2; R11.2 Nausea with vomiting, unspecified; T45.1X5A Adverse effect of antineoplastic and immunosuppressive drugs, initial encounter; F41.8 Other specified anxiety disorders; H54.7 Unspecified visual loss; I12.9 Hypertensive chronic kidney disease with stage 1 through stage 4 chronic kidney disease, or unspecified chronic kidney disease; C54.1 Malignant neoplasm of endometrium; R26.2 Difficulty in walking, not elsewhere classified; N18.9 Chronic kidney disease, unspecified; Z91.030 Bee allergy status; Z90.49 Acquired absence of other specified parts of digestive tract; Z79.82 Long term (current) use of aspirin; Z79.899 Other long term (current) drug therapy
CPT/HCPCS: 36415; 80048; 80053; 81003; 83735; 83880; 84484; 85025; 86140; 87045; 87046; 87493; 93005; 93010; 97110-GP; 97139-GP; 97161-GP; 99285-25; A9270-GY; J0696; J1642; J1650; J7040

== ENCOUNTER 2020-09-16 17:15 | Emergency (ER) | payer MEDICARE, BC ==
[2020-09-16 17:19] VITALS: BP 94/72; PULSE 75
--- NOTE | 2020-09-16 17:24 | EDM.PDOC ---
ED HPI GENERAL MEDICAL PROBLEM - General Chief Complaint: Upper Extremity Injury/Pain Stated Complaint: R shoulder pain Time Seen by Provider: 09/16/20 17:24 Source of Information: Reports: Patient, [facility] Records History Limitations: Reports: No Limitations - History of Present Illness INITIAL COMMENTS - FREE TEXT/NARRATIVE: Kiarra is a 65 year old female who presents to the ED from [facility] via transport van and wheelchair with c/o right shoulder pain. She is right hand dominant. Reports she has been struggling with chronic right shoulder pain but pain intensified significantly this morning after a lift/transfer. She reports she was being lifted by assist of 2 and felt like she was going to fall. Reports staff were lifting under her arms and at instant onset of pain after this. She has been unable to move arm without significant pain since that time. Denies any numbness or tingling. Denies any injury elsewhere. Onset: Today, Sudden Onset Date: 09/16/20 Duration: Constant Location: Reports: Upper Extremity, Right Quality: Reports: Sharp, Throbbing Severity: Severe Improves with: Reports: Medication (Tramadol) Worsens with: Reports: Movement Associated Symptoms: Reports: No Other Symptoms Treatments [employer]: Reports: Other Medication(s) (tramadol) Right Shoulder Pain Score (Numeric/FACES): 10 - Related Data Allergies Allergy/AdvReac Type Severity Reaction Status Date / Time venom-honey bee Allergy Anaphylactic Verified 09/16/20 17:19 [bee venom (honey bee)] Shock Home Meds: Home Meds Aspirin [Aspirin EC] 81 mg PO DAILY 05/26/20 [History] Calcium Carbonate/Vitamin D3 [Calcium 1,000 + D3 Caplet] 1 each PO DAILY 05/26/20 [History] Cholecalciferol (Vitamin D3) [Vitamin D3] 1,000 unit PO DAILY 05/26/20 [History] Escitalopram [Lexapro] 20 mg PO DAILY 05/26/20 [History] Ferrous Sulfate [Iron] 325 mg PO Q48H 05/26/20 [History] Losartan [Cozaar] 50 mg PO DAILY 05/26/20 [History] Metoprolol Succinate [Toprol Xl] 100 mg PO DAILY 05/26/20 [History] Mupirocin Cream [Bactroban Crm] 15 gm TOP BID PRN 05/26/20 [History] Naproxen Sodium 220 mg PO BID PRN 05/26/20 [History] hydroCHLOROthiazide [Hydrochlorothiazide] 25 mg PO DAILY 05/26/20 [History] traMADol [Ultram] 50 mg PO Q6H PRN 05/26/20 [History] Furosemide [Lasix] 20 mg PO DAILY #30 tablet 06/11/20 [Rx] Magnesium Chloride [Mag-64] 64 mg PO BIDMEALS tab.er 06/11/20 [Rx] Potassium Chloride [Klor-Con 10] 10 meq PO DAILY #30 tab.er 06/11/20 [Rx] cephALEXin [Keflex] 500 mg PO Q8H #20 cap 09/12/20 [Rx] ondansetron HCL [Ondansetron HCl] 8 mg PO Q6H PRN 09/16/20 [History] oxyCODONE HCl/Acetaminophen [Oxycodone-Acetaminophen 5-325] 1 each PO Q4H PRN #30 tablet 09/16/20 [Rx] Past Medical History HEENT History: Reports: Impaired Vision Cardiovascular History: Reports: Hypertension Oncologic (Cancer) History: Reports: Ovarian - Infectious Disease History Infectious Disease History: Reports: None - Past Surgical History GI Surgical History: Reports: Appendectomy, Cholecystectomy Musculoskeletal Surgical History: Reports: Other (See Below) Other Musculoskeletal Surgeries/Procedures:: HEEL SPUR SURGERY Social & Family History - Family History Family Medical History: No Pertinent Family History - Caffeine Use Caffeine Use: Reports: Coffee Review of Systems - Review of Systems Review Of Systems: Comprehensive ROS is negative, except as noted in HPI. ED EXAM, GENERAL - Physical Exam Exam: See Below Exam Limited By: No Limitations General Appearance: Alert, WD/WN, Mild Distress Peripheral Pulses: 2+: Radial (R) Extremities: Normal Capillary Refill, Arm Pain (right shoulder), Limited Range of Motion (no active ROM of right shoulder due to significant pain ). No: Increased Warmth, Redness Neurological: Alert, Oriented, CN II-XII Intact, Normal Cognition, Normal Gait, Normal Reflexes, No Motor/Sensory Deficits Psychiatric: Flat Affect Skin Exam: Intact Course - Vital Signs Last Recorded V/S: Last Vital Signs Temp 98.1 F 09/16/20 17:15 Pulse 75 09/16/20 17:15 Resp 16 09/16/20 17:15 BP 94/72 08/02/21 17:15 Pulse Ox 94 L 09/16/20 17:15 - Orders/Labs/Meds Meds: Medications Discontinued Medications Generic Name Dose Route Start Last Admin Trade Name Geena PRN Reason Stop Dose Admin Hydromorphone HCl 1 mg 09/16/20 17:40 09/16/20 17:43 Hydromorphone 1 Mg/Ml Syringe IM 09/16/20 17:41 1 mg ONETIME ONE Administration Oxycodone/Acetaminophen 2 packet 09/16/20 18:25 09/16/20 18:25 Take Home: Acetaminophen/Oxycodone 325-5 Mg, 2 Tab Pack PO 09/16/20 18:26 2 packet ONETIME ONE Administration Oxycodone/Acetaminophen 4 tab 09/16/20 18:07 Acetaminophen/Oxycodone 325-5 Mg Tab .ROUTE 09/16/20 18:08 .STK-MED ONE - Re-Assessments/Exams Free Text/Narrative Re-Assessment/Exam: 09/16/20 17:43 Consulted with [facility] orthopedic surgeon Dr. Leggett. Recommends either shoulder immobilizer or sling, whichever provides more comfort for patient. Recommends follow up xray in 2 weeks. Due to difficulty with transportation of patient, we can call ortho via [facility] to review xrays in 2 weeks for ongoing recommendations vs. having her go to [facility]. Departure - Departure Time of Disposition: 18:17 Disposition: Home, Self-Care 01 Condition: Fair Clinical Impression: Proximal humeral fracture Qualifiers: Encounter type: initial encounter Fracture type: closed Fracture alignment: nondisplaced Laterality: right - Discharge Information *PRESCRIPTION DRUG MONITORING PROGRAM REVIEWED*: Yes *COPY OF PRESCRIPTION DRUG MONITORING REPORT IN PATIENT SUSANA: Yes Prescriptions: oxyCODONE HCl/Acetaminophen [Oxycodone-Acetaminophen 5-325] 1 each PO Q4H PRN #30 tablet PRN Reason: Pain Instructions: Humerus Fracture Treated With Immobilization, [id number] Forms: ED Department Discharge Additional Instructions: - Shoulder immobilizer on at all times - If immobilizer is uncomfortable, may try sling - Percocet 1 tablet every 4 hours as needed for pain - Ice affected area 3-4x/day - Avoid pulling/lifting of RUE - Follow up 2 weeks with [facility] for repeat xrays. Sepsis Event Note (ED) - Evaluation Sepsis Screening Result: No Definite Risk - Problem List & Annotations (1) Proximal humeral fracture SNOMED Code(s): 904443333 Code(s): S42.209A - UNSP FRACTURE OF UPPER END OF UNSP HUMERUS, INIT FOR CLOS FX Status: Acute Qualifiers: Encounter type: initial encounter Fracture type: closed Fracture a lignment: displaced Laterality: right - Problem List Review Problem List Initiated/Reviewed/Updated: Yes - Assessment/Plan Assessment:: Right Proximal Humerus Fracture Plan: 65 yo female present so the ED with c/o severe right shoulder pain following tr ansfer with lift assist. Xrays reveal proximal humerus fracture with mild displacement. Consulted [facility] orthopedic surgeon Dr. Leggett, who recommends pain control and shoulder immobilizer or sling. Does not feel this needs orthopedic intervention. For convenience to patient, he reports we can repeat xrays in 2 weeks and call [facility] again for orthopedic review to ensure healing appropriately. Patient agreeable to this as transportation is very difficult for her at this time. Patient was given 1 mg dilaudid while in ED and had improvement in pain. Did make her slightly drowsy. Patient will be discharged back to SNF. Can use Percocet 1 tablet every 4 hours as needed for pain. Recommend shoulder immobilizer or sling on at all times. Avoid pulling of RUE during transfers. Ice affected area as needed. Follow up 2 weeks for recheck arm with xrays prior.
[2020-09-16] MEDS: HYDROmorphone 1 MG/ML Syringe IM ONE (17:43)
[2020-09-16] MEDS ORDERED: Acetaminophen/oxyCODONE 325-5 MG Tab ONE (18:07)
[2020-09-16] MEDS ORDERED: Take Home: Acetaminophen/oxyCODONE 325-5 MG, 2 Tab Pack ONE (18:07)
[2020-09-16] MEDS: Take Home: Acetaminophen/oxyCODONE 325-5 MG, 2 Tab Pack PO ONE (18:25)
== END 2020-09-16 18:35 | disposition home or self-care (01) ==
LOC: CC.ED 17:15
DX: S42.214A Unspecified nondisplaced fracture of surgical neck of right humerus, initial encounter for closed fracture (principal); I10 Essential (primary) hypertension; Z85.9 Personal history of malignant neoplasm, unspecified; Z91.030 Bee allergy status; Z79.82 Long term (current) use of aspirin; Z79.899 Other long term (current) drug therapy; X58.XXXA Exposure to other specified factors, initial encounter
CPT/HCPCS: 73030; 96372; 99283; A9270; J1170